=== PATIENT | female | born 1990 ===

== ENCOUNTER → 2020-03-06 08:26 | Outpatient (BNVA) | payer OTHER, SELFPAY | PROVIDERS: PCP Internal Medicine; Referring Provider Internal Medicine; Visit Provider Dietitian, Registered | DX: Z76.89 Persons encountering health services in other specified circumstances (principal) ==

== ENCOUNTER → 2020-03-12 08:13 | Outpatient (BNVA) | payer OTHER, SELFPAY | PROVIDERS: Visit Provider Surgery | DX: Z76.89 Persons encountering health services in other specified circumstances (principal) ==

== ENCOUNTER → 2020-03-27 15:44 | Outpatient (BNVA) | payer OTHER, SELFPAY | PROVIDERS: PCP Internal Medicine; Visit Provider Dietitian, Registered | DX: Z76.89 Persons encountering health services in other specified circumstances (principal) ==

== ENCOUNTER → 2020-04-09 10:34 | Outpatient (BNVA) | payer OTHER, SELFPAY | PROVIDERS: PCP Internal Medicine; Referring Provider Internal Medicine; Visit Provider Surgery | DX: Z76.89 Persons encountering health services in other specified circumstances (principal) ==

== ENCOUNTER → 2020-04-16 12:02 | Outpatient (BNVA) | payer OTHER, SELFPAY | PROVIDERS: Visit Provider Dietitian, Registered | DX: Z76.89 Persons encountering health services in other specified circumstances (principal) ==

== ENCOUNTER 2020-04-24 09:54 | Outpatient (REF) | payer OTHER, SELFPAY ==
--- NOTE | 2020-04-24 09:59 | US_ITS ---
EXAMINATION: US COMPLETE ABDOMEN WITH LIVER ELASTOGRAPHY CLINICAL INFORMATION: Morbid obesity due to excess calories COMPARISON: None. TECHNIQUE: Real-time imaging of the abdominal viscera. Noninvasive ultrasound liver fibrosis assessment is performed using Jordan ElastPQ point quantification shear wave elastography (pSWE) with a 5 MHz transducer. Multiple elastography samples are obtained. FINDINGS: PANCREAS: Normal. The visualized pancreatic head and body are normal in appearance. The remainder of the pancreas is obscured from visualization by the overlying bowel gas. ABDOMINAL AORTA: The proximal and middle aortic segments are normal in caliber. The distal aorta is obscured by gas. INFERIOR VENA CAVA: Visualized portions are normal. LIVER: The liver demonstrates normal contour with increased echogenicity. The liver is enlarged. No focal lesion or intrahepatic biliary duct dilatation. The right lobe measures 21.1 cm in length. The left lobe measures 14.1 cm in length. Hepatopedal flow of the main portal vein. Shear wave elastography provides a median stiffness of 1.73 m/s (reference: normal median stiffness is 0.81 - 1.22 m/s). The IQR/median stiffness to assess sampling precision is 0.24 (reference: optimal IQR/median stiffness is under 0.3). GALLBLADDER: Limited evaluation of the gallbladder. The patient is not NPO. No gallbladder wall thickening. The gallbladder may be stone filled COMMON BILE DUCT: Not visualized. RIGHT KIDNEY: Normal. No hydronephrosis. No renal calculi or focal parenchymal lesions. The kidney measures 13.8 cm in maximum dimension. LEFT KIDNEY: Normal. No hydronephrosis. No renal calculi or focal parenchymal lesions. The kidney measures 11.6 cm in maximum dimension. SPLEEN: Normal. The spleen measures 10.7 cm in maximum dimension. FREE FLUID: None. US/US abdomen comp w elastography IMPRESSION: 1. Hepatomegaly with hepatic steatosis. Limited evaluation of the gallbladder. Possible stone filled gallbladder. 2. Elastography: Liver elastography measurements are consistent with a moderate risk for clinically significant liver fibrosis (METAVIR Stage F2-F3).
--- NOTE | 2020-04-24 10:10 | FL_ITS ---
EXAMINATION: XR GI SERIES CLINICAL INFORMATION: Morbid obesity due to excess calories COMPARISON: None TECHNIQUE: Fluoroscopic assessment of the upper GI tract was performed in various upright and supine/prone obliquities utilizing thin and thick high density barium contrast material and effervescent granules. FINDINGS: The esophagus was normal in course, caliber, and contour. There was normal distensibility with no fixed segment of narrowing. No focal mucosal abnormality was identified. No significant esophageal dysmotility was observed. Contrast passed freely across the gastroesophageal junction into the stomach. No significant hiatal hernia. There was normal distensibility of the stomach with no focal abnormality identified. There was prompt gastric emptying into the duodenum which demonstrated a normal appearance. Mild gastroesophageal reflux was observed. FLUOROSCOPY TIME: 1.5 minutes DOSE AREA PRODUCT: 37.025 Gy-cm2 (aparicio-centimeter squared) FL/FL upper GI series IMPRESSION: Mild gastroesophageal reflux noted. Otherwise unremarkable upper GI examination.
[2020-04-25 14:17] LABS: H Pylori Breath Test NOT DETECTED (NOT DETECTED)
== END 2020-04-24 09:55 | disposition home or self-care (01) ==
LOC: HO.US 09:54
PROVIDERS: Visit Provider Surgery
DX: Z01.818 Encounter for other preprocedural examination (principal); E66.01 Morbid (severe) obesity due to excess calories; I10 Essential (primary) hypertension; K21.9 Gastro-esophageal reflux disease without esophagitis
CPT/HCPCS: 74240; 76705; 76981; 83013

== ENCOUNTER → 2020-04-30 08:01 | Outpatient (BNVA) | payer OTHER, SELFPAY | PROVIDERS: PCP Internal Medicine; Visit Provider Surgery | DX: Z76.89 Persons encountering health services in other specified circumstances (principal) ==

== ENCOUNTER → 2020-05-06 09:00 | Outpatient (BNVA) | payer OTHER, SELFPAY | PROVIDERS: PCP Internal Medicine; Visit Provider Surgery | DX: Z76.89 Persons encountering health services in other specified circumstances (principal) ==

== ENCOUNTER → 2020-05-09 07:59 | Outpatient (BNVA) | payer OTHER, SELFPAY | PROVIDERS: PCP Internal Medicine; Referring Provider Internal Medicine; Visit Provider Surgery | DX: Z76.89 Persons encountering health services in other specified circumstances (principal) ==

== ENCOUNTER → 2020-05-19 07:36 | Outpatient (REF) | payer OTHER, SELFPAY ==
--- NOTE | 2020-05-19 07:40 | CA_ITS ---
Transthoracic Echocardiogram Patient (Last, First, Middle): Llao Wade, Gender: Female Date of : 1990 Age: 30 Procedure Date: 05/19/2020 Procedure Type: Transthoracic Echocardiogram Location: OP Height: 167.64 cm Weight: 132.45 kg BSA: 2.35 m2 Heart Rate: bpm BP: 128 / 80 mmHg Manager Wound Care: Referring MD: Chava Maciel MD Symptoms: I51.7 - Cardiomegaly Study Quality: Fair ECG Rhythm: Sinus Conclusions: - The left ventricular systolic function is normal. The visually estimated ejection fraction is between 55-60%. - No obvious valvular pathology seen on this study. Findings Procedure Information Contrast agent, definity, is being given per protocol without apparent complications. Left Ventricle Normal left ventricular cavity size. There is normal left ventricular wall thickness. The left ventricular systolic function is normal. The visually estimated ejection fraction is between 55-60%. There is no evidence of regional wall motion abnormalities. Diastolic function is normal for age. Right Ventricle Normal right ventricular cavity size and systolic function. Atria The left atrium is normal in size. The right atrium is normal in size. Aortic Valve There is a normal trileaflet aortic valve. There is no aortic valve stenosis. There is no aortic valve regurgitation. Mitral Valve The mitral valve appears normal. There is no mitral valve regurgitation. There is no mitral valve stenosis. Pulmonic Valve The pulmonic valve was not well visualized. Tricuspid Valve Normal tricuspid valve structure. There is trace tricuspid valve regurgitation. The pulmonary artery systolic pressure is normal. Great Vessels The aortic annulus, sinuses of valsalva, and asc aorta are normal in size. Venous The inferior vena cava is normal in size and collapses greater than 50% with inspiration. Pericardium/Pleural There is no evidence of pericardial effusion. Prior Study Comparison No prior study available for comparison. Recommendations, Care & Conclusions No obvious valvular pathology seen on this study. Measurements 2D Linear Measurements IVSd: 1.05 0.6-0.9/0.6-1.0 cm LVIDd: 5.17 3.9-5.3/4.2-5.9 cm LVIDd Index: 2.20 2.4-3.2/2.2-3.1 cm/m2 LVIDs: 3.19 2.0-3.6 cm LVPWd: 1.00 0.7-1.1 cm Ao Root: 3.00 2.1-3.5 cm LA Diam: 4.10 2.7-3.8/3.0-4.0 cm LAIDs Index: 1.74 1.5-2.3 cm/m2 LV Mass: 247.54 67-162/88-224 g LV Mass Index: 105.34 43-95/49-115 g/m2 LVOT Diam: 2.30 3.0+(-)1.3 cm 2D Systolic Function EF 4C: 54.00 >55% EF 2C: 51.10 >55% EF BiP: 54.90 >55% Mitral Valve MV Pk E: 1.02 MV PK A: 0.54 MV Decel Time: 269.00 E/A: 1.90 E'Lateral: 12.80 E'Medial: 7.83 E/E' Med: 13.00 E/E' Lat: 8.00 PHT: 79.00 MVA PHT: 2.78 Decel Carbon: 3.78 Aortic Valve AoV Pk Abhinav: 1.46 AoV Mn Abhinav: 1.05 AoV VTI: 0.35 AoV Pk Grad: 9.00 Aov Mn Grad: 5.00 ALICIA Cont.VTI: 3.47 LVOT LVOT Pk Abhinav: 1.30 LVOT Mn Abhinav: 0.83 LVOT VTI: 0.29 LVOT Pk Grad: 7.00 LVOT Mn Grad: 3.00 LVOT Diam: 2.30 LVOT Area: 4.15 Diastolic Function MV Pk E: 1.02 MV Pk A: 0.54 E/A: 1.90 E'Medial: 7.83 E/E' Med: 13.00 E' Laterial: 12.80 E/E' Lat: 8.00 Tricuspid Valve TR Pk Abhinav: 2.09 TR Pk Grad: 17.00 RA Press: 3.00 RVSP: 20.00 Great Vessels Aorta Ao Root-2D: 3.00 2.0-3.7 cm Ao Asc: 2.90 2.1-3.4 cm Pulmonary Valve PV Pk Abhinav: 0.95 Peak PV Grad: 4.00 Updated in Other Vendor System with Status of Final Michael Wing MD electronically signed on 05/19/2020 1:36:51 PM with status of Final
== END ==
LOC: HO.CARD 07:36
PROVIDERS: Visit Provider Surgery
DX: Z01.818 Encounter for other preprocedural examination (principal); I10 Essential (primary) hypertension; I51.7 Cardiomegaly
CPT/HCPCS: 93306; Q9957

== ENCOUNTER → 2020-06-02 08:12 | Outpatient (BNVA) | payer OTHER, SELFPAY | PROVIDERS: PCP Internal Medicine; Visit Provider Surgery | DX: Z76.89 Persons encountering health services in other specified circumstances (principal) ==

== ENCOUNTER → 2020-06-20 08:10 | Outpatient (BNVA) | payer OTHER, SELFPAY | PROVIDERS: PCP Internal Medicine; Visit Provider Surgery | DX: Z76.89 Persons encountering health services in other specified circumstances (principal) ==

== ENCOUNTER → 2020-07-14 09:05 | Outpatient (BNVA) | payer OTHER, SELFPAY | PROVIDERS: PCP Internal Medicine; Visit Provider Physician Assistant ==

== ENCOUNTER → 2020-07-16 08:25 | Outpatient (BNVA) | payer OTHER, SELFPAY | PROVIDERS: PCP Internal Medicine; Visit Provider Surgery ==

== ENCOUNTER → 2020-07-17 08:09 | Outpatient (BNVA) | payer OTHER, SELFPAY | PROVIDERS: PCP Internal Medicine; Visit Provider Dietitian, Registered ==

== ENCOUNTER → 2020-07-25 08:24 | Outpatient (BNVA) | payer OTHER, SELFPAY | PROVIDERS: PCP Internal Medicine; Visit Provider Surgery ==

== ENCOUNTER → 2020-07-28 08:40 | Outpatient (BNVA) | payer OTHER, SELFPAY | PROVIDERS: PCP Internal Medicine; Visit Provider Physician Assistant ==

== ENCOUNTER → 2020-07-31 14:32 | Outpatient (BNVA) | payer OTHER, SELFPAY | PROVIDERS: Visit Provider Physician Assistant ==

== ENCOUNTER → 2020-08-01 14:16 | Outpatient (BNVA) | payer OTHER, SELFPAY | PROVIDERS: Visit Provider Physician Assistant ==

== ENCOUNTER 2020-08-05 05:58 | Inpatient (IN) | payer OTHER, SELFPAY ==
[2020-07-31 09:59] VITALS: BMI 43.4
[2020-07-31 14:52] LABS: MANUAL DIFF FLAG NO
[2020-07-31 14:54] LABS: Basophils Percent Auto 0.2 % (0-2); Eosinophils Absolute Auto 0.1 X10*3/uL (0.0-0.4); Eosinophils Percent Auto 1.3 % (0-4); Hematocrit 35.1 % (37-47); Hemoglobin 11.3 g/dl (12.0-16.0); Imm Gran Abs Auto 0.01 X10*3/uL (0.00-0.03); Imm Gran Pct Auto 0.2 % (0.0-0.4); Lymphocytes Absolute Auto 1.5 X10*3/uL (1.2-4.9); Lymphocytes Percent Auto 33.2 % (20-40); Mean Corpuscular HGB Conc 32.2 g/dl (31.0-35.0); Mean Corpuscular Hemoglobin 26.1 pg (27.0-33.0); Mean Corpuscular Volume 81.1 fL (80-98); Mean Platelet Volume 9.7 fL (9.4-12.3); Monocytes Absolute Auto 0.4 X10*3/uL (0.1-1.2); Monocytes Percent Auto 8.4 % (2-11); Neutrophils Absolute Auto 2.6 X10*3/uL (2.0-8.3); Neutrophils Percent Auto 56.7 % (45-73); Platelet Count 405 X10*3/uL (160-400); Red Blood Count 4.33 X10*6/uL (4.20-5.50); Red Cell Distribution Width 14.3 % (11.0-16.0); White Blood Count 4.6 X10*3/uL (4.8-10.8)
[2020-07-31 15:06] LABS: INTERNATIONAL NORM RATIO 1.2 (0.9-1.1); Prothrombin Time 14.4 SEC (10.8-13.0)
[2020-07-31 15:09] LABS: Partial Thromboplastin Time 42.6 SEC (24.1-38.0)
[2020-07-31 15:14] LABS: Estimated Average Glucose 103 mg/dL; Hemoglobin A1c % 5.2 %
[2020-07-31 15:25] LABS: Alanine Aminotransferase 31 U/L (0-31); Albumin Level 4.5 g/dL (3.5-5.0); Alkaline Phosphatase 87 U/L (39-117); Anion Gap 15 (12-20); Aspartate Amino Transferase 20 U/L (5-31); Bilirubin Total 0.6 mg/dL (0.0-1.0); Blood Urea Nitrogen 15 mg/dL (9-16); C Reactive Protein 3.69 mg/dL (< or = 0.50); Calcium 9.7 mg/dL (8.4-10.2); Carbon Dioxide 26 mmol/L (22-29); Chloride 106 mmol/L (96-108); Cholesterol 148 mg/dL; Creatinine Clr Calc Pharmacy 161.7; Estimated Glomerular Filt Rate > 60; Glucose Random 83 mg/dL (60-115); HDL Cholesterol 31 mg/dL; LDL Cholesterol Calculated 100 mg/dl; Sodium 143 mmol/L (135-145); Total Protein 8.2 g/dL (6.5-8.0); Triglycerides 85 mg/dL
[2020-07-31 15:45] LABS: TSH reflex Free T4 0.87 uIU/mL (0.32-4.0)
[2020-08-01 11:16] LABS: Insulin Level Total 17.1 uIU/mL
--- NOTE | 2020-08-04 10:35 | P.CONAN_ITS ---
Documented by User: Sammie Godwin 08/04/20 10:36 HPI - Anesthesia Eval Consult details Narrative: 30yo F for Gastrectomy Sleeve PMFSH Active Problems Active Problems: All Active Problems (Updated 07/31/20 @ 10:04 by Silvia Jimenez) Obesity (Acute) BMI 37.0-37.9, adult (Acute) Morbid obesity (Acute) Left ventricular hypertrophy (Acute) Past Medical History Medical History Anemia GERD (gastroesophageal reflux disease) Lab test negative for COVID-19 virus Left ventricular hypertrophy Morbid obesity Family History Family History Father No problems noted. Mother Hypertension Brain tumor Stroke Diabetes Brother No problems noted. Sister No problems noted. Surgical History Surgical History Hx of foot surgery Hx of tonsillectomy Social History Social History Are you a primary adult daycare coordinator to a significant other at home: No Do you presently have visiting nurse or other home services: No Smoking Status: Never smoker Use of substances other than those prescribed or required for medical reasons: Yes Substance Use Type: Marijuana Substance Use Type Other:: has not used in 2 months Substance Use Frequency: Occasionally Have you been hit, kicked, punched, or otherwise hurt by someone within the past year? If so, by whom?: No Advance Directives Information Provided: No Recently lost weight without trying: No Meds Allergies Allergy/AdvReac Type Severity Reaction Status Date / Time No Known Allergies Allergy Verified 07/31/20 10:08 Home Medications Medication Instructions Recorded Confirmed Last Taken Type pantoprazole 40 mg PO DAILY@0630 08/05/20 08/05/20 Unknown History Exam Exam Date and Time: August 04, 2020 1035 Height,Weight and Vital Signs: Height 5 ft 6 in Weight 122.016 kg Pertinent Lab Results Pertinent Lab Results: Laboratory Tests 07/31/20 07/31/20 07/31/20 14:15 14:15 14:15 WBC 4.6 L RBC 4.33 Hgb 11.3 L Hct 35.1 L MCV 81.1 MCH 26.1 L MCHC 32.2 RDW 14.3 Plt Count 405 H MPV 9.7 Immature Gran % (Auto) 0.2 Neut % (Auto) 56.7 Lymph % (Auto) 33.2 Wilkin % (Auto) 8.4 Eos % (Auto) 1.3 Baso % (Auto) 0.2 Lymph # (Auto) 1.5 Wilkin # (Auto) 0.4 Eos # (Auto) 0.1 Baso # (Auto) 0.0 Abs Immat Gran (auto) 0.01 Absolute Neuts (auto) 2.6 Absolute Nucleated RBC 0.000 Nucleated RBC % (auto) 0.0 PT 14.4 H INR 1.2 H APTT 42.6 H Sodium 143 Potassium 4.0 Chloride 106 Carbon Dioxide 26 Anion Gap 15 BUN 15 Creatinine 0.69 Estim Creat Clear Calc 161.7 Estimated GFR > 60 Random Glucose 83 Estimat Average Glucose Hemoglobin A1c % Total Insulin Calcium 9.7 Total Bilirubin 0.6 AST 20 ALT 31 Alkaline Phosphatase 87 C-Reactive Protein 3.69 H Total Protein 8.2 H Albumin 4.5 Triglycerides 85 Cholesterol 148 LDL Cholesterol, Calc 100 HDL Cholesterol 31 TSH 0.87 Blood Type Antibody Screen 07/31/20 07/31/20 07/31/20 14:15 14:15 14:15 WBC RBC Hgb Hct MCV MCH MCHC RDW Plt Count MPV Immature Gran % (Auto) Neut % (Auto) Lymph % (Auto) Wilkin % (Auto) Eos % (Auto) Baso % (Auto) Lymph # (Auto) Wilkin # (Auto) Eos # (Auto) Baso # (Auto) Abs Immat Gran (auto) Absolute Neuts (auto) Absolute Nucleated RBC Nucleated RBC % (auto) PT INR APTT Sodium Potassium Chloride Carbon Dioxide Anion Gap BUN Creatinine Estim Creat Clear Calc Estimated GFR Random Glucose Estimat Average Glucose 103 Hemoglobin A1c % 5.2 Total Insulin 17.1 Calcium Total Bilirubin AST ALT Alkaline Phosphatase C-Reactive Protein Total Protein Albumin Triglycerides Cholesterol LDL Cholesterol, Calc HDL Cholesterol TSH Blood Type O Positive Antibody Screen NEGATIVE Narrative Narrative: EKG 01/2020 NSR @ 71 ?LVH ECHO 05/2020 Conclusions: - The left ventricular systolic function is normal. The visually estimated ejection fraction is between 55-60%. - No obvious valvular pathology seen on this study. Assessment and Plan Assessment Anesthesia Assessment: Chart Reviewed Documented by User: Elijah Moran 08/05/20 07:42 [facility] Past Medical History Medical History Anemia GERD (gastroesophageal reflux disease) Lab test negative for COVID-19 virus Left ventricular hypertrophy Morbid obesity Family History Family History Father No problems noted. Mother Hypertension Brain tumor Stroke Diabetes Brother No problems noted. Sister No problems noted. Surgical History Surgical History Hx of foot surgery Hx of tonsillectomy Social History Social History Are you a primary adult daycare coordinator to a significant other at home: No Do you presently have visiting nurse or other home services: No Smoking Status: Never smoker Use of substances other than those prescribed or required for medical reasons: Yes Substance Use Type: Marijuana Substance Use Type Other:: has not used in 2 months Substance Use Frequency: Occasionally Have you been hit, kicked, punched, or otherwise hurt by someone within the past year? If so, by whom?: No Advance Directives Information Provided: No Recently lost weight without trying: No Meds Allergies Allergy/AdvReac Type Severity Reaction Status Date / Time No Known Allergies Allergy Verified 07/31/20 10:08 Home Medications Medication Instructions Recorded Confirmed Last Taken Type pantoprazole 40 mg PO DAILY@0630 08/05/20 08/05/20 Unknown History Exam Airway Mallampati Class: III TM Dist: >3cm Neck ROM: Full Loose/Missing/Broken Teeth: No Heart: rrr+[id number] Lungs: cta b/l Assessment and Plan Assessment Anesthesia Assessment: Anesthesia Plan Discussed, PAT Visit and Chart Reviewed Final Anesthetic Review NPO: Yes ASA Class: II Final Preanesthetic Review: No Changes in Pt Med Stat, Meds/Allgs Chart Reviewed, Consent Obtained/Reviewed and Anes Risks/Benef Reviewed Patient Risk: Low Procedure Risk: Low Assessment/Block/Sedation in SS: Assess/Block/Sedation-SS Anesthetic Plan Anesthetic Plan: GA and Agree w/ Assess. and Plan Disposition: Standard PACU
--- NOTE | 2020-08-04 19:20 | MHC.SHP ---
Pre-Procedural Eval Section A The patient is an INPATIENT: Yes The History & Physical has been completed within 30 days and I have reviewed it.: No Section B Chief Complaint: Morbid Severe Obesity Details of Present Illness: Morbid obesity Relevant Family History (Specify if Yes): No Relevant Social History: None Present Medications: see Short Stay Collaborative assessment Medical History: No relevant PMH History of Previous Operations: No relevant previous surgery Allergies: Allergies Allergy/AdvReac Type Severity Reaction Status Date / Time No Known Allergies Allergy Verified 07/31/20 10:08 Review of Systems Sugical H&P ROS: Negative: Constitution, Cardiovascular, Respiratory, Neurological, Psychiatric, Hem-Onc, Allergic/Immunologic, Gastrointestinal, Genitourinary, Musculoskeletal, Integumentary, Endocrine and Eyes/Ears/Nose/Throat Exam Surgical H&P Exam: Normal: HEENT, Normal: Heart, Normal: Lungs, Normal: Extremities, Normal: Abdomen, Normal: Skin and Normal: Neurological Plan Diagnosis/Plan: Unchanged I have reviewed the history and physical and performed a pertinent physical examination on my patient. No changes have occurred unless specified.
[2020-08-05] VITALS (11 sets, daily range): BP systolic 121–151; BP diastolic 63–92; PULSE 63–103; RESP 14–20; TEMP 36–36.7; O2SAT 94–100
[2020-08-05 06:30] LABS: UPreg QC Valid YES
[2020-08-05 06:31] LABS: Urine Pregnancy NEGATIVE (NEGATIVE)
[2020-08-05 06:59] LABS: COVID-19 Test Negative (Negative)
[2020-08-05] MEDS: Lactated Ringers 1,000 ML 999 ML IV (07:01)
[2020-08-05] MEDS: Lactated Ringers 1,000 ML 100 ML IVCONT (07:02)
--- NOTE | 2020-08-05 07:52 | HO.POSTANES ---
Post Anesthesia Evaluation Post Anesthesia Evaluation Vital Signs: Vital Signs Temp Pulse Resp BP Pulse Ox 08/05/20 06:32 97.2 F 103 H 18 133/77 99 Anesthesia: General Endotracheal-GETA Mental Status: Awake Pain Control: Satisfactory Nausea/Vomiting: None Hydration: Adequate Anesthesia-Related Issues: No Anes. Related Issues
--- NOTE | 2020-08-05 10:57 | P.BOP_ITS ---
Brief Operative Note Date of Service: 08/05/20 Pre-op diagnosis: Morbid obesity and comorbidities (see below) Post-op diagnosis: same Procedure: INITIAL PATIENT BMI ON PRESENTATION AT OUR OFFICE: 47.6 kg/m2 LAST BMI BEFORE SURGERY: 43.6 kg/m2 COMORBIDITIES: GERD, PCOS, depressionliver steatosis, liver fibrosis The patient participated in an intensive weekly lifestyle intervention and exercise program during which the patient has lost between the initial office visit and the last preoperative visit 26 lbs, or 8.78% of initial actual body weight. The patient met the BMI-criteria for bariatric surgery based on the BMI on initial presentation. The patient should not be penalized for achieving such weight loss because it is not sustainable long-term without surgical intervention and it was achieved in preparation for bariatric surgery under my direction and based on my published research ([email or web address] and [email or web address]) that a 10% preop erative weight loss improves long-term weight loss after surgery and reduces perioperative complications. Insurance carriers such as [facility] have endorsed my recommendations and have included in their policies criteria to include a 10% preoperative weight loss requirement. PROCEDURE: Esophago-gastroscopy, laparoscopic repair of incarcerated diaphragmatic hernia, laparoscopic lysis of adhesions, laparoscopic sleeve gastrectomy and laparoscopic gastropexy INDICATIONS: This is a 30 year-old female who was electively scheduled for laparoscopic, possibly open sleeve gastrectomy. The risks and complications of the procedure were discussed with the patient in advance, particularly the possibility of ; pulmonary embolism; staple line leak; bleeding; GERD; cardiac, pulmonary, or renal complications; as well as long-term problems such as insufficient weight loss, vitamin deficiency, strictures, or ulcers. The patient understood all the risks, and was in agreement to proceed with surgery. DESCRIPTION OF PROCEDURE: After informed consent was obtained from the patient, the patient was given preoperative antibiotics, and was transferred to the operating room. After successful induction of general anesthesia, pneumatic compressive devices were placed on both lower extremities. An upper endoscopy was performed next. The oropharynx and esophagus appeared to be within normal limits. There was a small diaphragmatic hernia present that was not reported at the preoperative upper GI. The stomach was entered. Then after all fluid and air were suctioned and the stomach was fully decompressed, the scope was withdrawn and secured in the mid esophagus. The patient was then prepped and draped in the usual sterile manner, and abdominal access was established at the right upper quadrant with the David technique. A 12 mm blunt port was inserted, and the abdomen was insufflated with CO2 to a pressure of 15 mmHg. Under direct visualization, additional ports were placed, specifically two 5 mm Versi-step ports to the left upper quadrant, and a 5 mm Versi-Step port to the right upper quadrant. 1% lidocaine plan was used to infiltrate all port sites as well as all fascia defects. Following that, the patient was placed in a steep reverse Trendelenburg position. An additional 5 mm port was placed to the right flank for the Mediflex retractor that was used to retract the left lobe of the liver. Due to the patient's large BMI and thick abdominal wall three 5 mm Versi-step ports had to be repositioned cephalad to be able to manipulate our instruments adequately and be able to perform the operation safely. Even with these additional ports, the operation was very difficult and took significantly longer to complete than the standard sleeve gastrectomy. The gastro-esophageal fat pad was opened with the ultrasonic device (Thunderbeat, Olympus) and the anterior esophagus and hiatus were exposed. The angle of His was opened with the ultrasonic device the fundus of the stomach from any diaphragmatic and splenic attachments. I then opened the gastrocolic ligament between the transverse colon and the greater curvature of the stomach with the ultrasonic device to enter the lesser sac and facilitate the ligation of the short gastric vessels. I started at a mid-point along the greater curvature and using the Thunderbeat, all short gastric vessels were divided all the way to the angle of His until the left darryn was completely dissected at its entirety. I then divided the gastro-colic ligament distally to a distance of about 3-4 cm proximal to the esophagus. There were some congenital adhesions between the pancreas and posterior gastric wall. Those were lysed completely with the ultrasonic device. Adhesiolysis took approximately 45 min to complete. The stomach was then divided transversely with one XAVIER-45 purple and four XAVIER-60 articulating orange loads. Every effort was made that the gastric sleeve had a tubular shape and an even caliber throughout. Once the sleeve resection was completed, the staple line of the gastric sleeve was reinforced with Hemoclips. The resected stomach was retrieved without difficulty from the David port. A gastropexy was then performed in order to prevent postoperative GERD and partial gastric volvulus. Several interrupted 2.0 Surgidac sutures were placed between the sleeve's staple line and the previously divided greater omentum and gastro-colic ligament using the Endo-Stitch device. An upper endoscopy was performed. There was no narrowing at the GE junction. The scope was easily advanced all the way to the pylorus which was clearly visualized. There was no narrowing anywhere and the sleeve's caliber was even throughout. The sleeve's staple line was inspected and there was no evidence of ischemia, bleeding or dehiscence. At that point the gastroscope was withdrawn from the patient?s mouth while we were decompressing the bowel and the stomach from any remaining air. I looked into the lesser sac to see how the sleeve was situating and it was situating well. There was no bleeding from the staple line, spleen, or short gastric vessels. The Mediflex retractor was removed, and the undersurface of the liver was inspected and there was no bleeding. The patient was placed in supine position. I closed the fascial defect of the 12 mm port site with a figure of eight #1 Polysorb suture. Then 100 cc 0.25 % Marcaine plain with 10 mg of Dexamethasone were used to infiltrate the fascial closure as well as all skin incisions. At this point, the abdomen was deflated, all ports were removed under direct visi on, and no bleeding was noted from any of the port sites. The skin incisions were irrigated with saline and were closed with 4-0 absorbable monofilament sutures. Steri-Strips and OpSites were used to cover all incisions. The patient was extubated and was transferred in stable condition to the recovery room for further care. I was present and performed all deluna parts of the procedure. Ms. Michele was the multimedia assistant. There were no residents to assist with this case. Very difficult surgery due to the patient's body habitus and thick abdominal wall requiring 3 ports to be repositioned and prolonging the operation for an additional one hour. Jose Maciel MD, PhD, FACS Surgeon: Chava Maciel MD Anesthesia: GETA, local and other (TAP block) [employer] Servicer: Ashtyn Michele Estimated blood loss (mL): 10 IV fluids (mL): 3,000 Urine output (mL): 0 (No Lane to record) Pathology: other (Stomach) Condition: stable Disposition: PACU
--- NOTE | 2020-08-05 10:57 | PM.DS ---
DS: Providers Provider Date of Service: 08/06/20 Date of admission: 08/05/20 05:58 Primary care physician: Unknown Physician DS: Medications Discharge Medications Home Medications: Home Medications Medication Instructions Recorded Confirmed pantoprazole 40 mg PO DAILY@0630 08/05/20 08/05/20 Previous Rx's Medication Instructions Recorded ondansetron HCl 4 mg tablet 4 mg PO DAILY PRN #14 tab 07/25/20 sucralfate 100 mg/mL oral 10 ml PO BID #420 ml 07/25/20 suspension DS: Summary Time Spent with Patient Time attestation: ADMITTING DIAGNOSIS: morbid obesity, left ventricular hypertrophy DISCHARGE DIAGNOSIS: same, s/p laparoscopic sleeve gastrectomy PAST SURGICAL HISTORY: tonsilectomy PROCEDURE: upper endoscopy, laparoscopic sleeve gastrectomy DISCHARGE SUMMARY: History of Present Illness: The patient is a 30 year-old woman with a BMI of 47.45 kg/m2 and associated co-morbidities as described above. The patient had extensive work-up,lost 24.4 lbs preoperatively and was electively scheduled for laparoscopic, possible open sleeve gastrectomy and gastropexy. Risks and complications of the surgery were discussed with the patient in advance, particularly the possibility of , pulmonary embolism, anastomotic leak, bleeding, bowel injury, GERD, cardiac, renal or pulmonary complications. The patient understood all the risks and was in agreement with the surgical plan. Hospital Course: The patient underwent an uneventful laparoscopic sleeve gastrectomy with gastropexy the day of admission. Postoperatively, the patient was transferred to the surgical floor. The patient was on IV Acetaminophen and IV dilaudid for pain control. Patient was started on bariatric phase 1 diet POD #0. On postoperative day one, the patient was feeling well without nausea, vomiting, fevers, or tachycardia. The patient had some mild incisional pain. The abdomen was soft. On the morning of postoperative day one, the patient was continued on 1 ounce of water or ice every half hour. During the first day, the patient did fairly well, having some incisional pain, but able to ambulate adequately and to tolerate liquids well. Since the patient is doing well, we decided that the patient was ready to be discharged. The patient was given instructions to follow-up with me next week and to call my office for any fever over 101, persistent abdominal pain, nausea, vomiting, GERD, symptoms of DVT such as calf tenderness, or leg swelling, or pulmonary embolism such as chest pain or shortness of breath. The patient was also instructed to drink 40-60 ounces of liquids per day using the 1-ounce cups. The patient was given prescription for Tylenol for pain, Zofran prn for nausea, and pantoprazole and carafate. The patient was encouraged to ambulate and use the incentive spirometer. The patient was allowed to shower, but no baths, and encouraged to stay active at home. All of these instructions were given to the patient personally. All questions were answered and the patient understood all instructions, the instructions were also given to the patient in print. Total time spent providing and/or coordinating discharge services: Discharge coordination time: Less than 30 minutes Physical Exam Vital Signs: Vital Signs: Last Vital Signs Temp 97.2 F 08/05/20 06:32 Pulse 103 H 08/05/20 06:32 Resp 18 08/05/20 06:32 BP 133/77 08/05/20 06:32 Pulse Ox 99 08/05/20 06:32 Body Mass Index 43.4 DS: Data Data Completed and Pending Pending studies at discharge: Pending at discharge 08/05/20 08:27 Surgical [PTH] Routine Labs on day of discharge: Laboratory Results - last 24 hr 08/05/20 08/05/20 06:22 06:22 Urine Test NEGATIVE COVID-19 (BETTE) Negative COVID-19 Clin Com See Note Discharge Plan Discharge Anticipated Discharge Date/Time: 08/06/20 11:56 Patient Disposition: Home, Self-Care Referrals: Physician,Unknown [Primary Care Provider] - Discharge Medications: Continued pantoprazole 40 mg tablet,delayed release (DR/EC) 40 mg PO DAILY@0630 RF: 0 sucralfate 100 mg/mL suspension 10 ml PO BID Qty: 420 RF: 2 ondansetron HCl [Zofran] 4 mg tablet 4 mg PO DAILY PRN (Reason: nausea and vomiting) Qty: 14 RF: 0 Discharge Orders: Discharge Order (Routine); Ordered 08/06/20 Ordered By: Chava Maciel Diet: other Activity on Discharge: No heavy lifting Stand Alone Forms: Patient Portal Discharge page Activity Restrictions/Additional Instructions: No tub baths, sex or returning to work until discussed at first post op appointment. No exercise, alcohol, tobacco or illegal drug use. Continue to use incentive spirometer hourly while awake. Walk in home for 5- 10 minutes every 2 hours during the first week. Continue phase 1 diet today and start phase 2 diet tomorrow morning. Follow all instructions in the bariatric handbook and call with any questions. Care Plan Goals: weight loss Health Concerns: morbid obesity Plan of Treatment: see discharge instructions Discharge Date/Time: 08/06/20 09:21
--- NOTE | 2020-08-05 11:04 | P.PNGS_ITS ---
Subjective Subjective Date of Service: 08/06/20 Interval history: Patient had mild incisional pain but was able to ambulate and use the incentive spirometer. Physical Exam Vital Signs: Vital Signs: Last Vital Signs Temp 97.4 F 08/05/20 10:52 Pulse 96 08/05/20 10:57 Resp 20 08/05/20 10:57 BP 123/69 08/05/20 10:57 Pulse Ox 100 08/05/20 10:57 Body Mass Index 43.4 GI: Inspection: Yes normal to inspection, Yes incision (dry, clean and intact) and Yes obesity Extrem: Right lower extremity: normal to inspection (no calf tenderness) Left lower extremity: normal to inspection (no calf tenderness) Progress Note: A&P Assessment and plan (1) Morbid obesity: Status: Acute (2) Left ventricular hypertrophy: Problem details: had echo 05/19/20 and normal Status: Acute (3) GERD (gastroesophageal reflux disease): Problem details: mild per patient-no Rx Status: Acute (4) Steatosis, liver: Status: Acute (5) Liver fibrosis: Status: Acute (6) PCOS (polycystic ovarian syndrome): Status: Acute (7) Diaphragmatic hernia: Status: Acute (8) S/P laparoscopic sleeve gastrectomy: Status: Acute Assessment and Plan: 30 year old female was admitted 08/05/2020 with morbid obesity and comorbidities. Problem 1: s/p laparoscopic sleeve gastrectomy, gastropexy and lysis of adhes ions Status: Doing well Plan: Check am labs, If OK, will begin phase 1 bariatric diet. (9) Depression: Status: Acute Fall Risk Details Current Medications: Current Medications Generic Name Dose Route Start Last Admin Trade Name Freq PRN Reason Stop Dose Admin Fentanyl 50 mcg 08/05/20 07:52 Fentanyl Citrate/Pf 100 Mcg/2 Ml Vial IVPUSH Q5M PRN Pain, Moderate (Pain Scale 4-6 Hydromorphone HCl 0.5 mg 08/05/20 07:52 Hydromorphone Hcl 0.5 Mg/0.5 Ml Syringe IVPUSH Q5M PRN Pain, Severe (Pain Scale 7-10) Lactated Ringer's 1,000 mls @ 100 mls/hr 08/05/20 06:15 08/05/20 07:02 Lr IVCONT 100 mls/hr .Q10H ANDER Administration Promethazine HCl 12.5 mg/ 50.5 mls @ 202 mls/hr 08/05/20 07:52 Sodium Chloride IV ONCE PRN Nausea and Vomiting Ondansetron HCl 4 mg 08/05/20 07:52 Ondansetron Hcl 4 Mg/2 Ml Vial IVPUSH ONCE PRN Nausea and Vomiting Oxycodone HCl 10 mg 08/05/20 07:52 Oxycodone Hcl Immed Release 5 Mg Tablet PO ONCE PRN Pain, Mild (Pain Scale 1-3) Time Spent With Patient Time: Total time spent is greater than 50% in coordination of care (as documented) at patient's floor/unit and/or counseling patient: Time with patient: less than 15 minutes Procedures Date of Service Date of Service: 08/06/20
[2020-08-05 11:21] LABS: Hematocrit 33.5 % (37-47); Hemoglobin 10.9 g/dl (12.0-16.0)
[2020-08-05 11:49] LABS: Anion Gap 15 (12-20); Blood Urea Nitrogen 7 mg/dL (9-16); Carbon Dioxide 23 mmol/L (22-29); Chloride 103 mmol/L (96-108); Creatinine Clr Calc Pharmacy 157.1; Estimated Glomerular Filt Rate > 60; Glucose Random 120 mg/dL (60-115); Potassium 3.5 mmol/L (3.3-5.1); Sodium 137 mmol/L (135-145)
[2020-08-05 11:55] LABS: Calcium 8.7 mg/dL (8.4-10.2)
[2020-08-05] MEDS: Famotidine/PF 20 MG/2 ML VIAL IVPUSH ×2 (12:35→21:46)
[2020-08-05] MEDS: Lactated Ringers 1,000 ML 125 ML IVCONT ×2 (12:39→20:18)
[2020-08-05] MEDS: ondansetron HCL 4 MG/2 ML VIAL IVPUSH ×2 (13:46→21:46)
[2020-08-05] MEDS: ceFAZolin Sodium/Dextrose,Iso 2 GM/50 ML PIGGYBACK IV (13:47)
[2020-08-05] MEDS: Metoclopramide HCl 10 MG/2 ML VIAL IVPUSH (14:30)
[2020-08-05] MEDS: 0.9 % Sodium Chloride Flush 3 ML SYRINGE IVFLUSH (23:30)
[2020-08-06 03:54] VITALS: BP 131/68; PULSE 61; RESP 14; TEMP 36.9; O2SAT 95
[2020-08-06] MEDS: Lactated Ringers 1,000 ML 125 ML IVCONT (04:08)
[2020-08-06 04:58] LABS: MANUAL DIFF FLAG NO
[2020-08-06 05:04] LABS: Basophils Percent Auto 0.1 % (0-2); Hematocrit 30.6 % (37-47); Hemoglobin 9.9 g/dl (12.0-16.0); Imm Gran Abs Auto 0.04 X10*3/uL (0.00-0.03); Imm Gran Pct Auto 0.4 % (0.0-0.4); Lymphocytes Absolute Auto 0.9 X10*3/uL (1.2-4.9); Lymphocytes Percent Auto 8.7 % (20-40); Mean Corpuscular HGB Conc 32.4 g/dl (31.0-35.0); Mean Corpuscular Hemoglobin 25.7 pg (27.0-33.0); Mean Corpuscular Volume 79.5 fL (80-98); Mean Platelet Volume 10.1 fL (9.4-12.3); Monocytes Absolute Auto 0.5 X10*3/uL (0.1-1.2); Monocytes Percent Auto 4.7 % (2-11); Neutrophils Absolute Auto 9.1 X10*3/uL (2.0-8.3); Neutrophils Percent Auto 86.1 % (45-73); Platelet Count 369 X10*3/uL (160-400); Red Blood Count 3.85 X10*6/uL (4.20-5.50); Red Cell Distribution Width 14.1 % (11.0-16.0); White Blood Count 10.6 X10*3/uL (4.8-10.8)
[2020-08-06 05:32] LABS: Anion Gap 14 (12-20); Blood Urea Nitrogen 5 mg/dL (9-16); Calcium 8.9 mg/dL (8.4-10.2); Carbon Dioxide 22 mmol/L (22-29); Chloride 106 mmol/L (96-108); Creatinine Clr Calc Pharmacy 179.9; Estimated Glomerular Filt Rate > 60; Glucose Random 98 mg/dL (60-115); Sodium 138 mmol/L (135-145)
[2020-08-06] MEDS: ondansetron HCL 4 MG/2 ML VIAL IVPUSH (05:52)
[2020-08-06 07:30] VITALS: BP 126/67; PULSE 58; RESP 17; TEMP 36.2; O2SAT 96
[2020-08-06] MEDS: Famotidine/PF 20 MG/2 ML VIAL IVPUSH (07:59)
--- NOTE | 2020-08-06 08:56 | MHC.CM.PN ---
pt lives c her parent in their home . she reports that she is independent and cares for herself, she works a job. pt's parent can help her if she has any needs. this will include a ride home at dc. pt denies the need for vna at dc. dc plan is home no svcs. cm to cont. to follow.
== END 2020-08-06 09:21 | disposition home or self-care (01) | DRG 620 ==
LOC: HO.SSSA 10:57 → HO.S3 11:11
PROVIDERS: Nurse Practitioner; Physician Assistant; Admitting Provider Surgery; Visit Provider Surgery
PROC: 0DB64Z3 Excision of Stomach, Percutaneous Endoscopic Approach, Vertical (ICD-10-PCS; CPT 43845; principal; 2020-08-05 07:30)
DX: E66.01 Morbid (severe) obesity due to excess calories (principal); K46.0 Unspecified abdominal hernia with obstruction, without gangrene; K74.00 Hepatic fibrosis, unspecified; Z68.42 Body mass index [BMI] 45.0-49.9, adult; K66.0 Peritoneal adhesions (postprocedural) (postinfection); K76.0 Fatty (change of) liver, not elsewhere classified; E28.2 Polycystic ovarian syndrome; Z20.822 Contact with and (suspected) exposure to COVID-19; Z79.899 Other long term (current) drug therapy
CPT/HCPCS: 36415; 80048; 80053; 80061; 81025; 83036; 83525; 84443; 85014; 85018; 85025; 85610; 85730; 86140; 86850; 86900; 86901; 87635; 88307; 88342; 99024; A4649; J0131; J0690; J1100; J1170; J2250; J2370; J2405; J2765; J3010

== ENCOUNTER → 2020-08-13 08:37 | Outpatient (BNVA) | payer OTHER, SELFPAY | PROVIDERS: PCP Internal Medicine; Visit Provider Surgery ==

== ENCOUNTER → 2020-09-10 08:05 | Outpatient (BNVA) | payer OTHER, SELFPAY | PROVIDERS: PCP Internal Medicine; Visit Provider Surgery ==

== ENCOUNTER → 2020-10-08 08:09 | Outpatient (BNVA) | payer OTHER, SELFPAY | PROVIDERS: PCP Internal Medicine; Visit Provider Surgery ==

== ENCOUNTER 2021-01-09 08:13 | Outpatient (REF) | payer OTHER, SELFPAY ==
[2021-01-09 11:06] LABS: MANUAL DIFF FLAG NO
[2021-01-09 11:11] LABS: Basophils Percent Auto 0.4 % (0-2); Eosinophils Absolute Auto 0.1 X10*3/uL (0.0-0.4); Eosinophils Percent Auto 2.1 % (0-4); Hematocrit 34.5 % (37-47); Imm Gran Abs Auto 0.01 X10*3/uL (0.00-0.03); Imm Gran Pct Auto 0.2 % (0.0-0.4); Lymphocytes Absolute Auto 2.3 X10*3/uL (1.2-4.9); Lymphocytes Percent Auto 50.2 % (20-40); Mean Corpuscular HGB Conc 31.9 g/dl (31.0-35.0); Mean Corpuscular Hemoglobin 26.1 pg (27.0-33.0); Mean Corpuscular Volume 81.9 fL (80-98); Mean Platelet Volume 10.1 fL (9.4-12.3); Monocytes Absolute Auto 0.4 X10*3/uL (0.1-1.2); Monocytes Percent Auto 8.2 % (2-11); Neutrophils Absolute Auto 1.8 X10*3/uL (2.0-8.3); Neutrophils Percent Auto 38.9 % (45-73); Platelet Count 363 X10*3/uL (160-400); Red Blood Count 4.21 X10*6/uL (4.20-5.50); Red Cell Distribution Width 13.8 % (11.0-16.0); White Blood Count 4.7 X10*3/uL (4.8-10.8)
[2021-01-09 11:36] LABS: Alanine Aminotransferase 19 U/L (0-31); Albumin Level 4.1 g/dL (3.5-5.0); Alkaline Phosphatase 92 U/L (39-117); Anion Gap 14 (12-20); Aspartate Amino Transferase 15 U/L (5-31); Bilirubin Total 0.3 mg/dL (0.0-1.0); Blood Urea Nitrogen 11 mg/dL (9-16); Calcium 9.4 mg/dL (8.4-10.2); Carbon Dioxide 26 mmol/L (22-29); Chloride 105 mmol/L (96-108); Estimated Glomerular Filt Rate > 60; Glucose Random 95 mg/dL (60-115); Potassium 4.2 mmol/L (3.3-5.1); Sodium 141 mmol/L (135-145); Total Protein 7.4 g/dL (6.5-8.0)
[2021-01-09 11:58] LABS: TSH reflex Free T4 2.11 uIU/mL (0.32-4.0)
[2021-01-09 12:10] LABS: Folate 15.4 ng/mL (> or = 4.0); Vitamin B12 482 pg/mL (200-900)
[2021-01-17 14:46] LABS: Vitamin D 25-OH, D2 <4 ng/mL; Vitamin D 25-OH, D3 25 ng/mL; Vitamin D 25-OH, Total 25 ng/mL (30-100)
== END 2021-01-09 08:14 | disposition home or self-care (01) ==
LOC: HO.HMGCLDS 08:13
PROVIDERS: PCP Internal Medicine; Visit Provider Internal Medicine
DX: L65.9 Nonscarring hair loss, unspecified (principal)
CPT/HCPCS: 36415; 80053; 82306; 82607; 82746; 84443; 85025

== ENCOUNTER 2021-03-06 10:53 | Outpatient (REF) | payer OTHER, SELFPAY ==
[2021-03-08 05:01] LABS: Rubeola IgG (Measles) >300.00 AU/mL
[2021-03-09 04:22] LABS: HBS Num1 0.34 mIU/mL (0-7.99); ~HepC Num1 0.22 S/CO (0.00-0.79); ~Hepatitis B Surface Antibody NONREACTIVE (Nonreactive); ~Hepatitis C Antibody Nonreactive (Nonreactive)
[2021-03-09 11:46] LABS: TS Negative Control Passed; TS Panel A 1; TS Panel B 0; TS Positive Control Passed; TSpotTB Negative (SeeBelow)
[2021-03-11 15:01] LABS: Tetanus Antitoxiod Antibody 4.14 IU/mL
== END 2021-03-06 10:54 | disposition home or self-care (01) ==
LOC: HO.HMGCLDS 10:53
PROVIDERS: PCP Internal Medicine; Visit Provider Internal Medicine
DX: Z11.1 Encounter for screening for respiratory tuberculosis (principal); Z28.3 Underimmunization status
CPT/HCPCS: 36415; 86481; 86706; 86735; 86762; 86765; 86774; 86787; 86803

== ENCOUNTER → 2021-04-17 11:47 | Outpatient (BNVA) | payer OTHER, SELFPAY | PROVIDERS: PCP Internal Medicine; Visit Provider Physician Assistant Surgical ==

== ENCOUNTER → 2021-05-11 08:19 | Outpatient (BNVA) | payer OTHER, SELFPAY | PROVIDERS: PCP Internal Medicine; Visit Provider Dietitian, Registered ==

== ENCOUNTER → 2021-05-18 08:01 | Outpatient (BNVA) | payer OTHER, SELFPAY | PROVIDERS: PCP Internal Medicine; Visit Provider Physician Assistant Surgical ==

== ENCOUNTER → 2021-05-21 08:09 | Outpatient (BNVA) | payer OTHER, SELFPAY | PROVIDERS: PCP Internal Medicine; Visit Provider Dietitian, Registered ==

== ENCOUNTER → 2021-07-09 08:28 | Outpatient (BNVA) | payer OTHER, SELFPAY | PROVIDERS: PCP Internal Medicine; Visit Provider Dietitian, Registered ==

== ENCOUNTER → 2021-07-20 08:15 | Outpatient (BNVA) | payer OTHER, SELFPAY | PROVIDERS: PCP Internal Medicine; Visit Provider Dietitian, Registered ==

== ENCOUNTER → 2021-10-19 08:01 | Outpatient (BNVA) | payer OTHER, SELFPAY | PROVIDERS: PCP Internal Medicine; Visit Provider Physician Assistant Surgical | DX: E66.01 Morbid (severe) obesity due to excess calories (principal) ==

== ENCOUNTER 2022-02-04 13:49 | Outpatient (REF) | payer MEDICAID, SELFPAY ==
[2022-02-04 16:33] LABS: MANUAL DIFF FLAG NO
[2022-02-04 16:38] LABS: Basophils Percent Auto 0.2 % (0-2); Eosinophils Absolute Auto 0.1 X10*3/uL (0.0-0.4); Eosinophils Percent Auto 2.2 % (0-4); Hemoglobin 11.8 g/dl (12.0-16.0); Imm Gran Abs Auto 0.01 X10*3/uL (0.00-0.03); Imm Gran Pct Auto 0.2 % (0.0-0.4); Lymphocytes Absolute Auto 1.9 X10*3/uL (1.2-4.9); Lymphocytes Percent Auto 45.1 % (20-40); Mean Corpuscular HGB Conc 33.7 g/dl (31.0-35.0); Mean Corpuscular Hemoglobin 28.1 pg (27.0-33.0); Mean Corpuscular Volume 83.3 fL (80.0-98.0); Mean Platelet Volume 10.2 fL (9.4-12.3); Monocytes Absolute Auto 0.3 X10*3/uL (0.1-1.2); Monocytes Percent Auto 6.5 % (2-11); Neutrophils Absolute Auto 1.9 x10*3/uL (2.0-8.3); Neutrophils Percent Auto 45.8 % (45-73); Platelet Count 334 X10*3/uL (160-400); Red Cell Distribution Width 13.2 % (11.0-16.0); White Blood Count 4.2 X10*3/uL (4.8-10.8)
[2022-02-04 16:49] LABS: Alanine Aminotransferase 20 U/L (0-31); Albumin Level 4.2 g/dL (3.5-5.0); Alkaline Phosphatase 77 U/L (39-117); Anion Gap 14 (12-20); Aspartate Amino Transferase 15 U/L (5-31); Bilirubin Total 0.2 mg/dL (0.0-1.0); Blood Urea Nitrogen 11 mg/dL (9-16); Calcium 9.4 mg/dL (8.4-10.2); Carbon Dioxide 23 mmol/L (22-29); Chloride 107 mmol/L (96-108); Cholesterol 137 mg/dL; Estimated Glomerular Filt Rate > 60; Glucose Fasting 86 mg/dL (60-99); HDL Cholesterol 40 mg/dL; Iron 58 mcg/dL (30-160); LDL Cholesterol Calculated 81 mg/dl; Percent Iron Saturation 15 % (15-50); Potassium 4.1 mmol/L (3.3-5.1); Sodium 140 mmol/L (135-145); Total Iron Binding Capacity 399 mcg/dL (228-428); Total Protein 7.5 g/dL (6.5-8.0); Triglycerides 83 mg/dL; Unsaturated Iron Binding 341 ug/dL
[2022-02-04 17:11] LABS: TSH reflex Free T4 0.97 uIU/mL (0.32-4.0); Vitamin D 25-OH Total 36.7 ng/mL (>30)
[2022-02-04 17:40] LABS: Folate > 20.0 ng/mL (> or = 4.0); Vitamin B12 636 pg/mL (200-900)
[2022-02-10 00:56] LABS: Vitamin A 54 mcg/dL (38-98); Zinc 71 mcg/dL (60-130)
[2022-02-10 09:11] LABS: TS Negative Control Passed; TS Panel A 0; TS Panel B 0; TS Positive Control Passed; TSpotTB Negative (Negative)
[2022-02-11 11:11] LABS: Vitamin B1 18 nmol/L (8-30)
== END 2022-02-04 13:50 | disposition home or self-care (01) ==
LOC: HO.HMGCLDS 13:49
PROVIDERS: Absent Provider Physician Assistant Surgical; PCP Internal Medicine; Visit Provider Internal Medicine
DX: Z00.01 Encounter for general adult medical examination with abnormal findings (principal); E28.2 Polycystic ovarian syndrome; E66.01 Morbid (severe) obesity due to excess calories; Z11.1 Encounter for screening for respiratory tuberculosis
CPT/HCPCS: 36415; 80053; 80061; 82306; 82607; 82746; 83540; 84425; 84443; 84590; 84630; 85025; 86481

== ENCOUNTER → 2023-08-22 11:30 | Outpatient (BNVA) | payer MEDICAID, SELFPAY | PROVIDERS: PCP Internal Medicine; Visit Provider Physician Assistant Surgical ==

== ENCOUNTER 2024-06-08 15:27 | Outpatient (AMB) | payer OTHER, SELFPAY ==
[2024-06-08 15:28] VITALS: BP 122/80; PULSE 72; O2SAT 98; BMI 43.6
--- NOTE | 2024-06-08 15:28 | MHC.PC.OV ---
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: No Accompanied by: Self / Same As Patient Allergies No Known Allergies Allergy (Verified 06/08/24 15:29) Medication List - Last Reconciled 06/08/24 by Yuliya Bell MD No Known Home Meds Tobacco use date assessed: 06/08/24 Dental Screening Dental Screen Date: 06/08/24 Did you have a dental visit in the last 12 months?: Yes Did you have a dental problem in the last 6 months where you did not have access to dental care?: No Was dental information given to patient?: Patient has dentist HPI Annual PE HPI Details - The patient is a 34-year-old female presenting for physical exam last time seen was 2021 - Reports lab work for comprehensive metabolic panel due to consideration of weight loss medication (Ozempic). At [facility] - Anemia noted in previous labs; deemed not significant but requires monitoring. - Chronic scalp condition described as a thick scar and rash, likely keloid or psoriasis. - Attempted treatments include topical steroids and creams; surgery may be required due to persistent scarring and tissue hypertrophy. - Recent onset of flu, resolved without complication. - need immunizations titer for work Health Maintenance - Completed blood work for comprehensive metabolic panel. Done at [facility] patient will provide reports - enrolled in weight loss program medication options at [facility]. - Flu vaccination received at hospital. 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 Diagnostic results - Previous labs from 2021 indicated anemia; other labs (liver, kidneys, blood sugar) were within normal limits. Review of Systems - General: Denies current swelling, fever, or significant systemic complaints. - Head & Neck: Denies headache. - Gastrointestinal: Reports recent flu symptoms; denies vomiting, diarrhea, or constipation. - Musculoskeletal: Denies limb swelling or joint pain. - Dermatological: Reports chronic scalp lesion, likely keloid. - Neurological: No headaches no dizziness - Ear nose throat: No sore throat no hearing difficulty no ear pain - Cardiovascular: No syncope, no chest pain, no palpitations - Gastrointestinal: No nausea vomiting or diarrhea - Endocrine: No polyuria polydipsia no heat intolerance - Genitourinary: No dysuria Physical Exam General: Cooperative, healthy appearing, comfortable, no acute distress Orientation: Patient oriented x3 Limitations: None Head: Normal to inspection Ears: Within normal limit visually Nose: Normal external nose present Face and sinus: Normal facial exam Eyes: Appearance normal, extraocular movement intact pupils reactive Neck: Normal visual inspection and supple Respiratory: Normal respiratory effort and able to speak in complete sentences. Clear to auscultation, no stridor Cardiovascular: S1 and S2 GI: Normal to inspection. Soft to palpation and nontender Skin: Turgor normal. Chronic thick scar on scalp, possibly keloid or psoriasis, recommended surgical consultation for removal Neuro: Patient oriented x3, motor sensory intact, balance intact, tandem pass Extremities: Normal to inspection, no swelling of ankles or arms, no problem in the shoulders Patient Instructions - Schedule an appointment with a surgeon for evaluation and possible removal of scalp lesion. - Follow up on lab results and ensure they are communicated from [facility]. - Plan to book next physical exam. - lab order placed for immunization titers - Maintain updated immunization records - need OBGYN visit [facility] Medical History Depression PCOS (polycystic ovarian syndrome) Liver fibrosis Steatosis, liver Anemia GERD (gastroesophageal reflux disease) Lab test negative for COVID-19 virus Morbid obesity BMI 37.0-37.9, adult Left ventricular hypertrophy Surgical History History of sleeve gastrectomy Hx of foot surgery Obesity Hx of tonsillectomy Family History Father Mental health disorder Mother Hypertension Brain tumor Stroke Diabetes Mental health disorder Brother No problems noted. Sister No problems noted. Social History Housing: Apartment Are you a primary menagerie caretaker to a significant other at home: No Do you presently have visiting nurse or other home services: No Patient Tobacco Use Status: Never used Tobacco e-Cigarette/Vaping Use: Never Used Substance Use Type: Marijuana service: No Current occupational status: employed Cognitive needs: No Hearing needs: No Vision needs: No Questionnaire PHQ-9 Over the last 2 weeks, how often have you been bothered by any of the following problems? 1. Little interest or pleasure in doing things: not at all 2. Feeling down, depressed, or hopeless: not at all 3. Trouble falling or staying asleep, or sleeping too much: not at all 4. Feeling tired or having little energy: not at all 5. Poor appetite or overeating: not at all 6. Feeling bad about yourself - or that you are a failure or have let yourself or your family down: not at all 7. Trouble concentrating on things, such as reading the newspaper or watching television: not at all 8. Moving or speaking so slowly that other people could have noticed. Or the opposite - being so fidgety or restless that you have been moving around a lot more than usual: not at all 9. Thoughts that you would be better off or of hurting yourself in some way: not at all Total score: 0 Depression Screening Interpretation: Negative Depression Screening Done: Yes 31233 - PHQ-9 Billing: Yes Source: Developed by Drs. Pete London, Louise Laura, Santo Stauffer and colleagues, with an educational omaira from [employer]. Thrive Questionnaire Date Thrive assessed: 06/08/24 I am a: Patient What is your living situation today?: I choose not to answer this question Within the past 12 months, did the food you bought not last and you didn't have the money to get more?: I choose not to answer this question Within the past 12 months, did you worry whether your food would run out before you got money to buy more?: I choose not to answer this question Do you have trouble paying for medicines?: No Do you have trouble getting transportation to medical appointments?: I choose not to answer this question Do you have trouble paying your heating and electricity bill?: I choose not to answer this question Do you have trouble taking care of your child, family member or friend?: I choose not to answer this question Do you have trouble with day-to-day activities such as bathing, preparing meals, shopping, managing finances, etc.?: I choose not to answer this question Are you currently unemployed and looking for a job?: I choose not to answer this question Are you interested in more education?: I choose not to answer this question Please select the resources that you would like help with: Transportation and None Currently or been in a relationship where the following occur: I choose not to answer THRIVE Score: 0 AUDIT C Alcohol Use Questionnaire (AUDIT-C) 1. How often do you have a drink containing alcohol?: Never 3. How often do you have six or more drinks on one occasion?: Never Total Score: 0 Score Reviewed/Action Taken: Yes HIRA-7 AMB Questionnaire HIRA-7 Date HIRA - 7 assessed: 06/08/24 Feeling nervous, anxious, or on edge: 0 = Not at all Not being able to stop or control worryin = Not at all Worrying too much about different things: 0 = Not at all Trouble relaxin = Not at all Being so restless that it is hard to sit still: 0 = Not at all Becoming easily annoyed or irritable: 0 = Not at all Feeling afraid as if something awful might happen: 0 = Not at all Total HIRA-7 score (0-4 normal; 5-9 mild; 10-14 moderate; 15-21 severe): 0 Source: Developed by Drs. Pete London, Louise Laura, Santo Stauffer and colleagues, with an educational omaira from [employer]. HIRA-7 Assessment Billing HIRA-7 Assessment Tool: HIRA-7 Assessment 86733 Physical exam (Primary Care) Vital Signs: Last Vital Signs Pulse 72 06/08/24 15:28 BP 122/80 06/08/24 15:28 Pulse Ox 98 06/08/24 15:28 Oxygen Delivery Method Room Air 06/08/24 15:28 BMI result Body Mass Index 43.6 Tobacco/Smoking Status: Tobacco use Status Tobacco use date assessed 06/08/24 06/08/24 15:30 Patient Tobacco Use Status Never used Tobacco 06/08/24 15:30 e-Cigarette/Vaping Use Never Used 06/08/24 15:30 PHQ-9: PHQ-9 Score PHQ-9: Total score 0 06/08/24 15:30 Depression Screening Interpretation: Negative Thrive Assessment: Date of Thrive Assessment Date Thrive assessed 06/08/24 06/08/24 15:30 Currently or been in a relationship where the following occur: I choose not to answer Coding Level of Care Code Est Pt Level 3 (44884) Est Pt Prev Care 18-39y(61495) Diagnoses Encounter for general adult medical examination with abnormal findings Z00.01 Morbid obesity E66.01 Keloid scar of skin L91.0 Immunizations incomplete Z28.3 Additional Codes HIRA-7 Assessment Billing - HIRA-7 Assessment Tool: HIRA-7 Assessment 83322 ([id number]) PHQ-9 - 82080 - PHQ-9 Billing: Yes ([id number]) Assessment & Plan Assessment & Plan (1) Encounter for general adult medical examination with abnormal findings: Code(s): Z00.01 - Encounter for general adult medical examination with abnormal findings Category: Medical (2) Morbid obesity: Code(s): E66.01 - Morbid (severe) obesity due to excess calories Category: Medical (3) Keloid scar of skin: Code(s): L91.0 - Hypertrophic scar Category: Medical (4) Immunizations incomplete: Code(s): Z28.3 - Underimmunization status Category: Medical Plan - The patient is a 34-year-old female presenting for physical exam last time seen was 2021 - Reports lab work for comprehensive metabolic panel due to consideration of weight loss medication (Ozempic). At [facility] - Anemia noted in previous labs; deemed not significant but requires monitoring. - Chronic scalp condition described as a thick scar and rash, likely keloid or psoriasis. - Attempted treatments include topical steroids and creams; surgery may be required due to persistent scarring and tissue hypertrophy. - Recent onset of flu, resolved without complication. - need immunizations titer for work Health Maintenance - Completed blood work for comprehensive metabolic panel. Done at [facility] patient will provide reports - enrolled in weight loss program medication options at [facility]. - Flu vaccination received at hospital. 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 Diagnostic results - Previous labs from 2021 indicated anemia; other labs (liver, kidneys, blood sugar) were within normal limits. Review of Systems - General: Denies current swelling, fever, or significant systemic complaints. - Head & Neck: Denies headache. - Gastrointestinal: Reports recent flu symptoms; denies vomiting, diarrhea, or constipation. - Musculoskeletal: Denies limb swelling or joint pain. - Dermatological: Reports chronic scalp lesion, likely keloid. - Neurological: No headaches no dizziness - Ear nose throat: No sore throat no hearing difficulty no ear pain - Cardiovascular: No syncope, no chest pain, no palpitations - Gastrointestinal: No nausea vomiting or diarrhea - Endocrine: No polyuria polydipsia no heat intolerance - Genitourinary: No dysuria Physical Exam General: Cooperative, healthy appearing, comfortable, no acute distress Orientation: Patient oriented x3 Limitations: None Head: Normal to inspection Ears: Within normal limit visually Nose: Normal external nose present Face and sinus: Normal facial exam Eyes: Appearance normal, extraocular movement intact pupils reactive Neck: Normal visual inspection and supple Respiratory: Normal respiratory effort and able to speak in complete sentences. Clear to auscultation, no stridor Cardiovascular: S1 and S2 GI: Normal to inspection. Soft to palpation and nontender Skin: Turgor normal. Chronic thick scar on scalp, possibly keloid or psoriasis, recommended surgical consultation for removal Neuro: Patient oriented x3, motor sensory intact, balance intact, tandem pass Extremities: Normal to inspection, no swelling of ankles or arms, no problem in the shoulders Patient Instructions - Schedule an appointment with a surgeon for evaluation and possible removal of scalp lesion. - Follow up on lab results and ensure they are communicated from [facility]. - Plan to book next physical exam. - lab order placed for immunization titers - Maintain updated immunization records - need OBGYN visit Orders: Orders Hepatitis B Surface Antibody Today Z28.3 - Underimmunization status Mumps Virus IgG Antibody Today Z28.3 - Underimmunization status Rubella IgG Antibody Today Z28.3 - Underimmunization status Rubeola IgG (Measles) Today Z28.3 - Underimmunization status Varicella IgG Antibody Today Z28.3 - Underimmunization status T Spot TB Today Z28.3 - Underimmunization status Tetanus Antitoxiod Antibody Today Z28.3 - Underimmunization status LDL Cholesterol Direct Today Z28.3 - Underimmunization status Referrals [facility] Referral Z01.419 - Encounter for gynecological examination (general) (routine) without abnormal findings General Surgery Referral L91.0 - Hypertrophic scar
== END 2024-06-08 15:49 | disposition home or self-care (01) ==
PROVIDERS: PCP Internal Medicine; Visit Provider Internal Medicine
DX: Z00.00 Encounter for general adult medical examination without abnormal findings (principal); L91.0 Hypertrophic scar; E66.01 Morbid (severe) obesity due to excess calories; Z68.41 Body mass index [BMI] 40.0-44.9, adult; Z28.9 Immunization not carried out for unspecified reason

== ENCOUNTER → 2024-06-08 15:27 | Outpatient (BNVA) | payer OTHER, SELFPAY | PROVIDERS: Visit Provider Internal Medicine | DX: Z00.01 Encounter for general adult medical examination with abnormal findings (principal); E66.01 Morbid (severe) obesity due to excess calories; L91.0 Hypertrophic scar; Z28.39 Other underimmunization status | CPT/HCPCS: 96127 ==

== ENCOUNTER 2024-06-12 10:27 | Outpatient (REF) | payer OTHER, SELFPAY ==
[2024-06-13 06:58] LABS: HBS Num1 328.62 mIU/mL (0-7.99); ~Hepatitis B Surface Antibody REACTIVE (Nonreactive)
[2024-06-13 19:54] LABS: Varicella IgG Antibody 9.71 S/CO
[2024-06-13 20:03] LABS: Rubella IgG Antibody 8.21 Index; Rubeola IgG (Measles) >300.00 AU/mL
[2024-06-14 03:38] LABS: LDL Cholesterol Direct 72 mg/dL (<100)
[2024-06-15 14:33] LABS: TS Negative Control Passed; TS Panel A 0; TS Panel B 0; TS Positive Control Passed; TSpotTB Negative (Negative)
== END 2024-06-12 10:28 | disposition home or self-care (01) ==
LOC: HO.HMGCLDS 10:27
PROVIDERS: PCP Internal Medicine; Visit Provider Internal Medicine
DX: Z28.39 Other underimmunization status (principal)
CPT/HCPCS: 36415; 83721; 86481; 86706; 86735; 86762; 86765; 86774; 86787

== ENCOUNTER 2024-06-14 08:23 | Outpatient (AMB) | payer OTHER, SELFPAY ==
--- NOTE | 2024-06-14 08:52 | A.OFFPC_ITS ---
Intake Visit Reasons: Test Result Allergies No Known Allergies Allergy (Verified 06/14/24 08:52) Medication List - Last Reconciled 06/14/24 by Yuliya Bell MD No Known Home Meds Tobacco use date assessed: 06/14/24 Dental Screening Dental Screen Date: 06/14/24 Did you have a dental visit in the last 12 months?: Yes Did you have a dental problem in the last 6 months where you did not have access to dental care?: No Was dental information given to patient?: Patient has dentist HPI Test Result HPI Details Patient is a 34-year-old female who had labs done at her weight loss program at [facility] Patient says that she was notified that her iron level is 9 And vitamin-D level is low She will provide me with the reports Patient has a history of iron-deficiency anemia in the past I have sent supplement for iron as well as for vitamin-D She also wanted to have immunization titers done which are back and acceptable T spot is still pending. Further lab work through [facility] Medical History Depression PCOS (polycystic ovarian syndrome) Liver fibrosis Steatosis, liver Anemia GERD (gastroesophageal reflux disease) Lab test negative for COVID-19 virus Morbid obesity BMI 37.0-37.9, adult Left ventricular hypertrophy Surgical History History of sleeve gastrectomy Hx of foot surgery Obesity Hx of tonsillectomy Family History Father Mental health disorder Mother Hypertension Brain tumor Stroke Diabetes Mental health disorder Brother No problems noted. Sister No problems noted. Social History Housing: Apartment Are you a primary special needs caregiver to a significant other at home: No Do you presently have visiting nurse or other home services: No Patient Tobacco Use Status: Never used Tobacco e-Cigarette/Vaping Use: Never Used Substance Use Type: Marijuana service: No Current occupational status: employed Cognitive needs: No Hearing needs: No Vision needs: No Questionnaire PHQ-9 Over the last 2 weeks, how often have you been bothered by any of the following problems? 1. Little interest or pleasure in doing things: not at all 2. Feeling down, depressed, or hopeless: not at all 3. Trouble falling or staying asleep, or sleeping too much: not at all 4. Feeling tired or having little energy: not at all 5. Poor appetite or overeating: not at all 6. Feeling bad about yourself - or that you are a failure or have let yourself or your family down: not at all 7. Trouble concentrating on things, such as reading the newspaper or watching television: not at all 8. Moving or speaking so slowly that other people could have noticed. Or the opposite - being so fidgety or restless that you have been moving around a lot more than usual: not at all 9. Thoughts that you would be better off or of hurting yourself in some way: not at all Total score: 0 Depression Screening Interpretation: Negative Depression Screening Done: Yes 92940 - PHQ-9 Billing: Yes Source: Developed by Drs. Pete London, Louise Laura, Santo Stauffer and colleagues, with an educational omaira from [employer]. Thrive Questionnaire Date Thrive assessed: 06/14/24 I am a: Patient What is your living situation today?: I choose not to answer this question Within the past 12 months, did the food you bought not last and you didn't have the money to get more?: I choose not to answer this question Within the past 12 months, did you worry whether your food would run out before you got money to buy more?: I choose not to answer this question Do you have trouble paying for medicines?: No Do you have trouble getting transportation to medical appointments?: I choose not to answer this question Do you have trouble paying your heating and electricity bill?: I choose not to answer this question Do you have trouble taking care of your child, family member or friend?: I choose not to answer this question Do you have trouble with day-to-day activities such as bathing, preparing meals, shopping, managing finances, etc.?: I choose not to answer this question Are you currently unemployed and looking for a job?: I choose not to answer this question Are you interested in more education?: I choose not to answer this question Please select the resources that you would like help with: Transportation and None Currently or been in a relationship where the following occur: I choose not to answer THRIVE Score: 0 AUDIT C Alcohol Use Questionnaire (AUDIT-C) 1. How often do you have a drink containing alcohol?: Never 3. How often do you have six or more drinks on one occasion?: Never Total Score: 0 Score Reviewed/Action Taken: Yes HIRA-7 AMB Questionnaire HIRA-7 Date HIRA - 7 assessed: 06/14/24 Feeling nervous, anxious, or on edge: 0 = Not at all Not being able to stop or control worryin = Not at all Worrying too much about different things: 0 = Not at all Trouble relaxin = Not at all Being so restless that it is hard to sit still: 0 = Not at all Becoming easily annoyed or irritable: 0 = Not at all Feeling afraid as if something awful might happen: 0 = Not at all Total HIRA-7 score (0-4 normal; 5-9 mild; 10-14 moderate; 15-21 severe): 0 Source: Developed by Drs. Pete London, Louise Laura, Santo Stauffer and colleagues, with an educational omaira from [employer]. HIRA-7 Assessment Billing HIRA-7 Assessment Tool: HIRA-7 Assessment 57597 Review of Systems Const Denies chills and Denies fever(s) ENT Denies epistaxis and Denies nasal discharge Card Denies chest pain Resp Denies chest congestion, Denies cough and Denies hemoptysis GI Denies diarrhea and Denies nausea Skin/Breast Denies rash Neuro Reports no additional complaints Psych Reports no additional complaints Endo Reports no additional complaints Physical exam (Primary Care) Tobacco/Smoking Status: Tobacco use Status Tobacco use date assessed 06/14/24 06/14/24 08:53 Patient Tobacco Use Status Never used Tobacco 06/14/24 08:53 e-Cigarette/Vaping Use Never Used 06/14/24 08:53 PHQ-9: PHQ-9 Score PHQ-9: Total score 0 06/14/24 09:29 Depression Screening Interpretation: Negative Thrive Assessment: Date of Thrive Assessment Date Thrive assessed 06/14/24 06/14/24 08:53 Currently or been in a relationship where the following occur: I choose not to answer Telehealth Telehealth Telehealth Platform: [employer] Location of provider rendering services: practice address Location of patient: address on file Patient Identification confirmed using: Name, : Yes Telehealth method: voice only Patient verbally consented to treatment: Yes Patient verbally consented to billing insurance company: Yes Patient informed of any privacy concerns related to visit: Yes Minutes spent on Phone/Video with Pt.: 13 Coding Level of Care Code Tele Est Pt Level 3 (51092) Diagnoses Iron deficiency E61.1 Vitamin D deficiency E55.9 Additional Codes HIRA-7 Assessment Billing - HIRA-7 Assessment Tool: HIRA-7 Assessment 53052 ([id number]) PHQ-9 - 57633 - PHQ-9 Billing: Yes ([id number]) Assessment & Plan Assessment & Plan (1) Iron deficiency: Code(s): E61.1 - Iron deficiency Category: Medical (2) Vitamin D deficiency: Code(s): E55.9 - Vitamin D deficiency, unspecified Category: Medical Plan Patient is a 34-year-old female who had labs done at her weight loss program at [facility] Patient says that she was notified that her iron level is 9 And vitamin-D level is low She will provide me with the reports Patient has a history of iron-deficiency anemia in the past I have sent supplement for iron as well as for vitamin-D She also wanted to have immunization titers done which are back and acceptable T spot is still pending. Further lab work through [facility] Medications: New cholecalciferol (vitamin D3) 25 mcg PO DAILY 90 days 90 caps 1RF ferrous sulfate 324 mg PO ONCE 90 days 90 tabs 0RF
== END 2024-06-14 09:33 | disposition home or self-care (01) ==
LOC: HO.HMCC 08:23
PROVIDERS: PCP Internal Medicine; Visit Provider Internal Medicine
DX: E61.1 Iron deficiency (principal); E55.9 Vitamin D deficiency, unspecified

== ENCOUNTER → 2024-06-14 08:23 | Outpatient (BNVA) | payer OTHER, SELFPAY | PROVIDERS: PCP Internal Medicine; Visit Provider Internal Medicine | DX: E61.1 Iron deficiency (principal); E55.9 Vitamin D deficiency, unspecified | CPT/HCPCS: 96127 ==

== ENCOUNTER 2024-06-27 09:44 | Outpatient (AMB) | payer OTHER, SELFPAY ==
--- NOTE | 2024-06-27 09:38 | A.OFFVIS_ITS ---
VS Expanded 06/27/24 09:39 Height 5 ft 6 in Weight 272 lb BMI 43.9 Intake Visit Reasons: TV PO LSG 08/05/2020 Allergies No Known Allergies Allergy (Verified 06/14/24 08:52) Medication List - Last Reconciled 06/27/24 by KERRI Dillon cholecalciferol (vitamin D3) 25 mcg PO DAILY 90 days ferrous sulfate 324 mg PO ONCE 90 days HPI Comments Details: This?is a?34?yo female who is s/p LSG 08/05/2020. Presents for 3 year 10 month post op visit. Weight gain of 29lbs since last OV in 2021.? Pt had a baby 1 year ago, not currently . Pt recently had bloodwork and based on those results was started on iron and vit D. She requests a prescription for GLP1 agonist. Was trying to get through [facility] but was unable to. Present meal plan includes: Premier protein shakes in the past - wants to get back to a shake based plan. [facility] Medical History Depression PCOS (polycystic ovarian syndrome) Liver fibrosis Steatosis, liver Anemia GERD (gastroesophageal reflux disease) Lab test negative for COVID-19 virus Morbid obesity BMI 37.0-37.9, adult Left ventricular hypertrophy Surgical History History of sleeve gastrectomy Hx of foot surgery Obesity Hx of tonsillectomy Family History Father Mental health disorder Mother Hypertension Brain tumor Stroke Diabetes Mental health disorder Brother No problems noted. Sister No problems noted. Social History Housing: Apartment Are you a primary primary health care nurse to a significant other at home: No Do you presently have visiting nurse or other home services: No Patient Tobacco Use Status: Never used Tobacco e-Cigarette/Vaping Use: Never Used Substance Use Type: Marijuana service: No Current occupational status: employed Cognitive needs: No Hearing needs: No Vision needs: No Telehealth Telehealth Telehealth Platform: Telephone Location of provider rendering services: practice address Location of patient: address on file Patient Identification confirmed using: Name, : Yes Telehealth method: voice only Patient verbally consented to treatment: Yes Patient verbally consented to billing insurance company: Yes Patient informed of any privacy concerns related to visit: Yes Minutes spent on Phone/Video with Pt.: 16 Assessment & Plan Assessment & Plan (1) Obesity (BMI 30-39.9): Code(s): E66.9 - Obesity, unspecified Category: Medical (2) S/P laparoscopic sleeve gastrectomy: Code(s): Z98.84 - Bariatric surgery status Category: Surgical Plan I encouraged pt to ask her PCP about starting GLP1 agonist- pt aware I can provide letter of support or other documents if PCP is willing to prescribe. In the meantime she plans to restart a shake based plan, has used Premier in the past- recommended 4 shakes per day. Pt will contact office if she needs documentation for PCP. I spent a total of 30 minutes reviewing/updating records, examining the patient and counseling the patient on weight management as detailed above.
[2024-06-27 09:39] VITALS: BMI 43.9
--- OUTSIDE RECORDS SUMMARY | 2024-06-27 10:28 | XMS_ITS | Clinical Summary ---
Author Organization [address] Address [address] [place] [id number] Phone Care Team Providers Care Donor Services Technician Name Role Phone Physician, Pcp Unknown Primary Care Provider Azul vailable Allergies Active Allergy Reactions Criticality Noted Date Comments Clomiphene Hives 05/04/2024 Medications Medication Sig Dispensed Refills Start Date End Date Status ergocalciferol (VITAMIN D-2) 1,250 mcg (50,000 unit) capsule Take 1 capsule (50,000 Units total) by mouth 1 (one) time per week for 8 doses. 8 capsule 06/11/2024 07/31/2024 Active ascorbic acid (VITAMIN C) 250 MG chewable tablet Chew 1 tablet (250 mg total) 3 (three) times a day. 270 tablet 06/11/2024 09/09/2024 Active ferrous sulfate 325 mg (65 mg iron) EC tablet Take 1 tablet (325 mg total) by mouth 3 (three) times a day with meals. Do not crush, chew, or split. 270 tablet 06/11/2024 09/09/2024 Active thiamine 100 mg tablet Take 1 tablet (100 mg total) by mouth 2 (two) times a day. 60 tablet 06/14/2024 07/14/2024 Active Encounters Date Type Department Care Team Description 05/08/2024 Telephone Bariatric Surgery [address] [place] [address] Marion West MD Endoscopy 05/04/2024 2:30 PM EST Office Visit Bariatric Surgery [address] [phone] Marion West MD Prediabetes (Primary Dx) from Last 3 Months Surgical History Surgery Date Site/Laterality Comments ABDOMINAL SURGERY PARTIAL GASTRECTOMY 06/06/2019 - 06/05/2020 Medical History Medical History Date Comments Hernia, internal Obesity Social History Tobacco Use Types Packs/Day Years Used Date Smoking Tobacco: Never Smokeless Tobacco: Never Tobacco Cessation:Counseling Given: Not Answered Sex and Gender Information Value Date Recorded Sex Assigned at Not on file Gender Identity Not on file Sexual Orientation Not on file Job Start Date Occupation Industry Not on file Not on file Not on file Obstetrics History Last Filed Vital Signs Vital Sign Reading Time Taken Comments Blood Pressure 133/73 05/04/2024 2:29 PM EST Pulse 89 05/04/2024 2:29 PM EST Temperature - - Respiratory Rate - - Oxygen Saturation 97% 05/04/2024 2:29 PM EST Inhaled Oxygen Concentration - - Weight 124 kg (274 lb) 05/04/2024 2:29 PM EST Height 167.6 cm (5' 6 ) 05/04/2024 2:29 PM EST Body Mass Index 44.22 05/04/2024 2:29 PM EST Plan of Treatment Upcoming Encounters Date Type Department Care Team (Late st Contact Info) Description 07/09/2024 1:30 PM EST Office Visit Bariatric Surgery - Leiter [address] [facility] [address] [place] [address] Brooklynn Lopez PA [address] [place] [address] [place] [address] Health Maintenance Due Date Last Done Comments DTaP,Tdap,and Td Vaccines (1 - Tdap) 2011 Hepatitis B Vaccines (1 of 3 - 19+ 3-dose series) 2011 Cervical Cancer Screening: P ap Smear 2013 Depression Screening 01/06/2024 HIV Screening 01/06/2024 Hepatitis C Screening 01/06/2024 Social Influencers of Health Screening 01/06/2024 COVID-19 Vaccine (1 - 2023-2 5 season) 2024 Cholesterol Screening (Lipid Panel) 06/08/2029 06/08/2024 Influenza Vaccine Completed 03/12/2024 HIB Vaccines Aged Out No longer eligi ble based on patient's age to complete this topic HPV Vaccines Aged Out No longer eligi ble based on patient's age to complete this topic Hepatitis A Vaccines Aged Out No long er eligible based on patient's age to complete this topic IPV Vaccines Aged Out No longer eligi ble based on patient's age to complete this topic MMR Vaccines Aged Out No longer eligi ble based on patient's age to complete this topic Meningococcal ACWY Vaccine Aged Out N o longer eligible based on patient's age to complete this topic Pneumococcal Vaccine: Pediat rics (0 to 5 Years) and At-Risk Patients (6 to 64 Years) Aged Out No longer eligi ble based on patient's age to complete this topic RSV Immunization Patients Un sim 20 months Aged Out No longer eligible b ased on patient's age to complete this topic Varicella Vaccines Aged Out No longer eligible based on patient's age to complete this topic Procedures Procedure Name Priority Date/Time Associated Diagnosis Comments EXTERNAL CLINICAL LAB 06/13/2024 CBC WITH AUTO DIFFERENTIAL Routine 06/08/2024 1:41 PM EST Prediabetes VITAMIN D 25 HYDROXY Routine 06/08/2024 1:41 PM EST Diabetes mellitus, latent VITAMIN B1 Routine 06/08/2024 1:41 PM EST Diabetes mellitus, latent HEMOGLOBIN A1C Routine 06/08/2024 1:41 PM EST Prediabetes PREALBUMIN Routine 06/08/2024 1:41 PM EST Prediabetes FOLATE Routine 06/08/2024 1:41 PM EST Prediabetes VITAMIN B12 Routine 06/08/2024 1:41 PM EST Prediabetes FERRITIN Routine 06/08/2024 1:41 PM EST Prediabetes LIPID PANEL Routine 06/08/2024 1:41 PM EST Prediabetes IRON AND TIBC Routine 06/08/2024 1:41 PM EST Prediabetes CBC AND DIFFERENTIAL Routine 06/08/2024 1:41 PM EST Prediabetes ALBUMIN Routine 06/08/2024 1:41 PM EST Prediabetes from Last 3 Months Results * External clinical lab (06/13/2024) Provider [facility] LAB BLOOD ORDERA BLES * (ABNORMAL) CBC auto differential (06/08/2024 1:41 PM EST) [facility] WBC 4.9 4.0 - 10.5 K/mcL LAB HEMETOLOGY METHOD 06/08/2024 4:54 PM [facility] RBC 3.94(L) 4.20 - 5.40 M/mcL LAB HEMETOLOGY METHOD 06/08/2024 4:54 PM [facility] Hemoglobin 9.3(L) 12.5 - 16.0 g/dL LAB HEMETOLOGY METHOD 06/08/2024 4:54 PM [facility] Hematocrit 28.3(L) 37.0 - 47.0 % LAB HEMETOLOGY METHOD 06/08/2024 4:54 PM [facility] MCV 71.9(L) 78.0 - 100.0 FL LAB HEMETOLOGY METHOD 06/08/2024 4:54 PM [facility] MCH 23.7(L) 25.0 - 33.0 pcg LAB HEMETOLOGY METHOD 06/08/2024 4:54 PM [facility] MCHC 33.0 32.0 - 36.0 g/dL LAB HEMETOLOGY METHOD 06/08/2024 4:54 PM [facility] RDW 15.3 12.1 - 16.2 % LAB HEMETOLOGY METHOD 06/08/2024 4:54 PM [facility] Platelets 395 150 - 450 K/mcL LAB HEMETOLOGY METHOD 06/08/2024 4:54 PM [facility] MPV 8.0 7.4 - 11.4 FL LAB HEMETOLOGY METHOD 06/08/2024 4:54 PM [facility] Neutrophils Relative 42.5(L) 44.0 - 74.0 % LAB HEMETOLOGY METHOD 06/08/2024 4:54 PM [facility] Lymphocytes Relative 47.8 20.0 - 48.0 % LAB HEMETOLOGY METHOD 06/08/2024 4:54 PM [facility] Monocytes Relative 6.5 2.0 - 12.0 % LAB HEMETOLOGY METHOD 06/08/2024 4:54 PM [facility] Eosinophils Relative 2.8 0.0 - 6.0 % LAB HEMETOLOGY METHOD 06/08/2024 4:54 PM [facility] Basophils Relative 0.4 0.0 - 2.0 % LAB HEMETOLOGY METHOD 06/08/2024 4:54 PM [facility] Neutrophils Absolute 2.10 1.80 - 7.80 K/mcL LAB HEMETOLOGY METHOD 06/08/2024 4:54 PM [facility] Lymphocytes Absolute 2.30 1.00 - 3.20 K/mcL LAB HEMETOLOGY METHOD 06/08/2024 4:54 PM [facility] Monocytes Absolute 0.30 0.00 - 0.80 K/mcL LAB HEMETOLOGY METHOD 06/08/2024 4:54 PM [facility] Eosinophils Absolute 0.10 0.00 - 0.50 K/mcL LAB HEMETOLOGY METHOD 06/08/2024 4:54 PM [facility] Basophils Absolute 0.00 0.00 - 0.20 K/mcL LAB HEMETOLOGY METHOD 06/08/2024 4:54 PM [facility] Blood Venous blood specimen / Unknown Venipuncture / Unknown 06/08/2024 1:41 PM EST 06/08/2024 4:39 PM EST Marion West MD LAB BLOOD ORDERA BLES [facility] [address] [place] [address], [place] [phone] * (ABNORMAL) Iron and TIBC (06/08/2024 1:41 PM EST) Iron 19(L) 37 - 170 mcg/dL LAB CHEMISTRY METHOD 06/08/2024 5:16 PM EST [facility] UIBC 369(H) 155 - 355 mcg/dL LAB CHEMISTRY METHOD 06/08/2024 5:16 PM EST [facility] TIBC 388 250 - 450 mcg/dL LAB CHEMISTRY METHOD 06/08/2024 5:16 PM EST [facility] Iron Saturation 5(L) 20 - 45 % LAB CHEMISTRY METHOD 06/08/2024 5:16 PM EST [facility] Blood Venous blood specimen / Unknown Venipuncture / Unknown 06/08/2024 1:41 PM EST 06/08/2024 4:37 PM EST Marion West MD LAB BLOOD ORDERA BLES [facility] [address] [place] [address], [place] [phone] * (ABNORMAL) Vitamin D 25 hydroxy (06/08/2024 1:41 PM EST) Vit D, 25-Hydroxy 20.5(L) 30.0 - 100.0 ng/mL LAB CHEMISTRY METHOD 06/08/2024 5:40 PM EST [facility] Blood Venous blood specimen / Unknown Venipuncture / Unknown 06/08/2024 1:41 PM EST 06/08/2024 4:37 PM EST Narrative [facility] - 06/08/2024 5:40 PM EST Vitamin D ?Reference Range ng/ml Deficiency ? <10 Insufficiency ??10-30 Sufficiency ?30-100 Toxicity ? >100 Marion West MD LAB BLOOD ORDERA BLES Performing Organization Address [facility] Co de Phone Number [facility] [address] [place] [address], * (ABNORMAL) Vitamin B1 (06/08/2024 1:41 PM EST) Vitamin B1 Whole Blood 37(L) 38 - 122 ug/L 06/13/2024 6:21 AM EST [facility] Comment: This test was developed and the performance characteristics determined by [facility]. It has not been cleared or approved by the FDA. The laboratory is regulated under CLIA as qualified to perform high-complexity testing. This test is used for patient testing purposes. It should not be regarded as investigational or for research. Test performed at [facility], [address] [place], [place] ??[address] ? [phone] Vanesa Montiel MD, PhD - [employer] Blood Venous blood specimen / Unknown Venipuncture / Unknown 06/08/2024 1:41 PM EST 06/08/2024 4:34 PM EST Marion West MD LAB BLOOD ORDERA BLES Performing Organization Address [facility]/ZIP Co de Phone Number [facility] [address] [place] [address] * Prealbumin (06/08/2024 1:41 PM EST) Prealbumin 20 17 - 34 mg/dL LAB CHEMISTRY METHOD 06/08/2024 5:16 PM EST [facility] Blood Venous blood specimen / Unknown Venipuncture / Unknown 06/08/2024 1:41 PM EST 06/08/2024 4:37 PM EST Marion West MD LAB BLOOD ORDERA BLES [facility] [address] [place] [address], [place] [phone] * Hemoglobin A1c (06/08/2024 1:41 PM EST) Hemoglobin A1C 5.6 <5.7 % LAB CHEMISTRY METHOD 06/09/2024 8:00 AM EST [facility] Mean Bld Glu Estim. 114 mg/dL LAB CHEMISTRY METHOD 06/09/2024 8:00 AM EST [facility] Blood Venous blood specimen / Unknown Venipuncture / Unknown 06/08/2024 1:41 PM EST 06/08/2024 4:39 PM EST Narrative [facility] - 06/09/2024 8:00 AM EST ADA Guidelines: ?? Increased risk Diabetes Mellitus A1C 5.7 - 6.4% and Fasting Blood Glucose 100 - 125 mg/dl Diabetes Mellitus: A1C >6.5% and Fasting Blood Glucose >125 mg/dl Marion West MD LAB BLOOD ORDERA BLES Performing Organization Address City/[facility]/ZIP Co de Phone Number [facility] [address] [place] [address], [place] [phone] * Folate (06/08/2024 1:41 PM EST) Pathologist [facility] Folate 16.3 >=3.0 ng/ml LAB CHEMISTRY METHOD 06/08/2024 5:40 PM EST [facility] Blood Venous blood specimen / Unknown Venipuncture / Unknown 06/08/2024 1:41 PM EST 06/08/2024 4:37 PM EST Marion West MD LAB BLOOD ORDERA BLES [facility] [address] [place] [address], [place] [phone] * (ABNORMAL) Ferritin (06/08/2024 1:41 PM EST) Pathologist [facility] Ferritin 7(L) 10 - 120 ng/mL LAB CHEMISTRY METHOD 06/08/2024 5:40 PM EST [facility] Blood Venous blood specimen / Unknown Venipuncture / Unknown 06/08/2024 1:41 PM EST 06/08/2024 4:37 PM EST Marion West MD LAB BLOOD ORDERA BLES [facility] [address] [place] [address], [place] [phone] * Vitamin B12 (06/08/2024 1:41 PM EST) [facility] Vitamin B-12 417 180 - 914 pcg/mL LAB CHEMISTRY METHOD 06/08/2024 5:40 PM EST [facility] Blood Venous blood specimen / Unknown Venipuncture / Unknown 06/08/2024 1:41 PM EST 06/08/2024 4:37 PM EST Marion West MD LAB BLOOD ORDERA BLES [facility] [address] [place] [address], [place] [phone] * Albumin (06/08/2024 1:41 PM EST) Pathologist [facility] Albumin 4.1 3.5 - 5.0 g/dL LAB CHEMISTRY METHOD 06/08/2024 5:16 PM EST [facility] Blood Venous blood specimen / Unknown Venipuncture / Unknown 06/08/2024 1:41 PM EST 06/08/2024 4:37 PM EST Marion West MD LAB BLOOD ORDERA BLES [facility] [address] [place] [address], [place] [phone] * (ABNORMAL) Lipid panel (06/08/2024 1:41 PM EST) Cholesterol 113 0 - 200 mg/dL LAB CHEMISTRY METHOD 06/08/2024 5:16 PM EST [facility] Triglycerides 77 <150 mg/dL LAB CHEMISTRY METHOD 06/08/2024 5:16 PM EST [facility] HDL 34(L) 35 - 80 mg/dL LAB CHEMISTRY METHOD 06/08/2024 5:16 PM EST [facility] LDL Calculated 64 50 - 130 mg/dL LAB CHEMISTRY METHOD 06/08/2024 5:16 PM EST [facility] VLDL Cholesterol José 15.4 mg/dL LAB CHEMISTRY METHOD 06/08/2024 5:16 PM EST [facility] Comment:No established refer ence range. Blood Venous blood specimen / Unknown Venipuncture / Unknown 06/08/2024 1:41 PM EST 06/08/2024 4:37 PM EST Marion West MD LAB BLOOD ORDERA BLES Performing Organization Address City/[facility]/ZIP Co de Phone Number [facility] [address] [place] [address], [place] [phone] from Last 3 Months Care Teams Donor Services Technician Relationship Specialty Start Date End Date Physician, Pcp Unknown PCP - General 05/07/24
== END 2024-06-27 10:26 | disposition home or self-care (01) ==
LOC: HO.HBS 09:44
PROVIDERS: PCP Internal Medicine; Visit Provider Physician Assistant Surgical
DX: E66.813 Obesity, class 3 (principal); Z68.41 Body mass index [BMI] 40.0-44.9, adult; Z90.3 Acquired absence of stomach [part of]; Z98.84 Bariatric surgery status
CPT/HCPCS: 98967

== ENCOUNTER → 2024-06-27 09:44 | Outpatient (BNVA) | payer OTHER, SELFPAY | PROVIDERS: PCP Internal Medicine; Visit Provider Physician Assistant Surgical ==

== ENCOUNTER 2024-07-02 13:02 | Outpatient (AMB) | payer OTHER, SELFPAY ==
--- NOTE | 2024-07-02 13:05 | MHC.OFFVIS ---
Vital Signs 07/02/24 13:06 Height 5 ft 6 in Weight 270 lb BMI 43.6 BP 120/75 Blood Pressure Location Rt brachial Position Sitting Pulse 102 H Intake Visit Reasons: Hypertrophic scar Intake Note: Patient referred by pcp Dr. Bell for evaluation of keloid scar on scalp. Present for yrs. Reports hx of psoriasis. Previously treated steroid injections. Patient c/o: itch, bleeds, tender with touch. Planner Scheduler Required: No Accompanied by: Self / Same As Patient Allergies clomiphene [From Clomid] Allergy (Mild, Verified 07/02/24 13:16) [facility] prednylidene Allergy (Mild, Verified 07/02/24 13:16) Blister HPI Comments Details: Patient presents for evaluation of 2 growth type processes involving the posterior scalp area. The patient is calling these hypertrophic/keloid scars although she has never had surgery to this area before. Patient also has been told this is a type of psoriasis although has not had this area further evaluated. She has no other such lesions elsewhere in her body. Chart was reviewed and patient evaluated [facility] Medical History Depression PCOS (polycystic ovarian syndrome) Liver fibrosis Steatosis, liver Anemia GERD (gastroesophageal reflux disease) Lab test negative for COVID-19 virus Morbid obesity BMI 37.0-37.9, adult Left ventricular hypertrophy Surgical History History of sleeve gastrectomy Hx of foot surgery Obesity Hx of tonsillectomy Family History Father Mental health disorder Mother Hypertension Brain tumor Stroke Diabetes Mental health disorder Brother No problems noted. Sister No problems noted. Social History Housing: Apartment Are you a primary care support representative to a significant other at home: No Do you presently have visiting nurse or other home services: No Patient Tobacco Use Status: Never used Tobacco e-Cigarette/Vaping Use: Never Used Substance Use Type: Marijuana service: No Current occupational status: employed Cognitive needs: No Hearing needs: No Vision needs: No Physical Exam Vital Signs: Last Vital Signs Pulse 102 H 07/02/24 13:06 BP 120/75 07/02/24 13:06 BMI result Body Mass Index 43.6 HEENT Other: Patient has 2 areas measuring roughly 10 x 3 and 6 x 3 transversely involving the mid posterior scalp area of elevated erythematous chronic scarring which actually would be hypertrophic scar/keloid diagnosis if she had had prior incisions here although as noted above she has not had any prior trauma or surgery to the areas. Unsure if this perhaps could be even a hidradenitis suppurativa type pathology. Assessment & Plan Assessment & Plan (1) Keloid scar of skin: Code(s): L91.0 - Hypertrophic scar Category: Surgical Plan: Because of the unusual appearance and precise etiology of this area, my recommendation is for patient to be evaluated by Plastic surgery should resection ultimately be required because of the extent of resection required to completely excise the to pathologies. Patient understands and agrees. Arrangements were made for this. All questions answered Orders: Referrals Plastic Surgery Referral L73.2 - Hidradenitis suppurativa, L91.0 - Hypertrophic scar Coding Level of Care Code New Pt Level 4 (17045) Diagnoses Keloid scar of skin L91.0
[2024-07-02 13:06] VITALS: BP 120/75; PULSE 102; BMI 43.6
--- OUTSIDE RECORDS SUMMARY | 2024-07-02 17:40 | XMS_ITS | Clinical Summary ---
Author Organization [address] Address [address] [place] [phone] Phone Care Team Providers Care Director Of Estate Name Role Phone Physician, Pcp Unknown Primary [...] Care Team Description 05/08/2024 Telephone Bariatric Surgery [address] [place] [address] Marion West MD Endoscopy 05/04/2024 2:30 PM EST Office Visit Bariatric Surgery [address] [phone] Marion West MD Prediabetes (Primary [...] PM EST Office Visit Bariatric Surgery - [place] [address] [facility] [address] [place] [address] Brooklynn Lopez PA [address] [place] [address] [place] [address] Health Maintenance Due Date Last Done Comments [...] CBC auto differential (06/08/2024 1:41 PM EST) [facility] WBC 4.9 4.0 - 10.5 K/mcL LAB HEMETOLOGY METHOD 06/08/2024 4:54 PM [facility] RBC 3.94(L) 4.20 - 5.40 M/mcL LAB HEMETOLOGY METHOD 06/08/2024 4:54 PM [facility] Hemoglobin 9.3(L) 12.5 - 16.0 g/dL LAB HEMETOLOGY METHOD 06/08/2024 4:54 PM [facility] Hematocrit 28.3(L) 37.0 - 47.0 % LAB HEMETOLOGY METHOD 06/08/2024 4:54 PM [facility] MCV 71.9(L) 78.0 - 100.0 FL LAB HEMETOLOGY METHOD 06/08/2024 4:54 PM [facility] MCH 23.7(L) 25.0 - 33.0 pcg LAB HEMETOLOGY METHOD 06/08/2024 4:54 PM [facility] MCHC 33.0 32.0 - 36.0 g/dL LAB HEMETOLOGY METHOD 06/08/2024 4:54 PM [facility] RDW 15.3 12.1 - 16.2 % LAB HEMETOLOGY METHOD 06/08/2024 4:54 PM [facility] Platelets 395 150 - 450 K/mcL LAB HEMETOLOGY METHOD 06/08/2024 4:54 PM [facility] MPV 8.0 7.4 - 11.4 FL LAB HEMETOLOGY METHOD 06/08/2024 4:54 PM [facility] Neutrophils Relative 42.5(L) 44.0 - 74.0 % LAB HEMETOLOGY METHOD 06/08/2024 4:54 PM [facility] Lymphocytes Relative 47.8 20.0 - 48.0 % LAB HEMETOLOGY METHOD 06/08/2024 4:54 PM [facility] Monocytes Relative 6.5 2.0 - 12.0 % LAB HEMETOLOGY METHOD 06/08/2024 4:54 PM [facility] Eosinophils Relative 2.8 0.0 - 6.0 % LAB HEMETOLOGY METHOD 06/08/2024 4:54 PM [facility] Basophils Relative 0.4 0.0 - 2.0 % LAB HEMETOLOGY METHOD 06/08/2024 4:54 PM [facility] Neutrophils Absolute 2.10 1.80 - 7.80 K/mcL LAB HEMETOLOGY METHOD 06/08/2024 4:54 PM [facility] Lymphocytes Absolute 2.30 1.00 - 3.20 K/mcL LAB HEMETOLOGY METHOD 06/08/2024 4:54 PM [facility] Monocytes Absolute 0.30 0.00 - 0.80 K/mcL LAB HEMETOLOGY METHOD 06/08/2024 4:54 PM [facility] Eosinophils Absolute 0.10 0.00 - 0.50 K/mcL LAB HEMETOLOGY METHOD 06/08/2024 4:54 PM [facility] Basophils Absolute 0.00 0.00 - 0.20 K/mcL LAB HEMETOLOGY METHOD 06/08/2024 4:54 PM [facility] Blood Venous blood specimen / Unknown Venipuncture / Unknown 06/08/2024 1:41 PM EST 06/08/2024 4:39 PM EST Marion West MD LAB BLOOD ORDERA BLES [facility] [address] [place] [address], [place] [phone] * (ABNORMAL) Iron and TIBC (06/08/2024 1:41 PM EST) Iron 19(L) 37 - 170 mcg/dL LAB CHEMISTRY METHOD 06/08/2024 5:16 PM EST [facility] UIBC 369(H) 155 - 355 mcg/dL LAB CHEMISTRY METHOD 06/08/2024 5:16 PM EST [facility] TIBC 388 250 - 450 mcg/dL LAB CHEMISTRY METHOD 06/08/2024 5:16 PM EST [facility] Iron Saturation 5(L) 20 - 45 % LAB CHEMISTRY METHOD 06/08/2024 5:16 PM EST [facility] Blood Venous blood specimen / Unknown Venipuncture / Unknown 06/08/2024 1:41 PM EST 06/08/2024 4:37 PM EST Marion West MD LAB BLOOD ORDERA BLES [facility] [address] [place] [address], [place] [phone] * (ABNORMAL) Vitamin D 25 hydroxy (06/08/2024 1:41 PM EST) Vit D, 25-Hydroxy 20.5(L) 30.0 - 100.0 ng/mL LAB CHEMISTRY METHOD 06/08/2024 5:40 PM EST [facility] Blood Venous blood specimen / Unknown Venipuncture / Unknown 06/08/2024 1:41 PM EST 06/08/2024 4:37 PM EST Narrative [facility] - 06/08/2024 5:40 PM EST Vitamin D ?Reference Range ng/ml Deficiency ? <10 Insufficiency ??10-30 Sufficiency ?30-100 Toxicity ? >100 Marion West MD LAB BLOOD ORDERA BLES Performing Organization Address [facility] Co de Phone Number [facility] [address] [place] [address], * (ABNORMAL) Vitamin B1 (06/08/2024 1:41 PM EST) Vitamin B1 Whole Blood 37(L) 38 - 122 ug/L 06/13/2024 6:21 AM EST [facility] Comment: This test was developed and the performance characteristics determined by [facility]. It has not been cleared or approved by the FDA. The laboratory is regulated under CLIA as qualified to perform high-complexity testing. This test is used for patient testing purposes. It should not be regarded as investigational or for research. Test performed at [facility], [email or web address] [place], [place] ??[address] ? [phone] Vanesa Montiel MD, PhD - Oven Operator Blood Venous blood specimen / Unknown Venipuncture / Unknown 06/08/2024 1:41 PM EST 06/08/2024 4:34 PM EST Marion West MD LAB BLOOD ORDERA BLES Performing Organization Address [facility]/ZIP Co de Phone Number [facility] [address] [place] [address] * Prealbumin (06/08/2024 1:41 PM EST) Prealbumin 20 17 - 34 mg/dL LAB CHEMISTRY METHOD 06/08/2024 5:16 PM EST [facility] Blood Venous blood specimen / Unknown Venipuncture / Unknown 06/08/2024 1:41 PM EST 06/08/2024 4:37 PM EST Marion West MD LAB BLOOD ORDERA BLES [facility] [address] [place] [address], [place] [phone] * Hemoglobin A1c (06/08/2024 1:41 PM EST) Hemoglobin A1C 5.6 <5.7 % LAB CHEMISTRY METHOD 06/09/2024 8:00 AM EST [facility] Mean Bld Glu Estim. 114 mg/dL LAB CHEMISTRY METHOD 06/09/2024 8:00 AM EST [facility] Blood Venous blood specimen / Unknown Venipuncture / Unknown 06/08/2024 1:41 PM EST 06/08/2024 4:39 PM EST Narrative [facility] - 06/09/2024 8:00 AM EST ADA Guidelines: ?? Increased risk Diabetes Mellitus A1C 5.7 - 6.4% and Fasting Blood Glucose 100 - 125 mg/dl Diabetes Mellitus: A1C >6.5% and Fasting Blood Glucose >125 mg/dl Marion West MD LAB BLOOD ORDERA BLES Performing Organization Address City/[facility]/ZIP Co de Phone Number [facility] [address] [place] [address], [place] [phone] * Folate (06/08/2024 1:41 PM EST) Pathologist [facility] Folate 16.3 >=3.0 ng/ml LAB CHEMISTRY METHOD 06/08/2024 5:40 PM EST [facility] Blood Venous blood specimen / Unknown Venipuncture / Unknown 06/08/2024 1:41 PM EST 06/08/2024 4:37 PM EST Marion eWst MD LAB BLOOD ORDERA BLES [facility] [address] [place] [address], [place] [phone] * (ABNORMAL) Ferritin (06/08/2024 1:41 PM EST) Pathologist [facility] Ferritin 7(L) 10 - 120 ng/mL LAB CHEMISTRY METHOD 06/08/2024 5:40 PM EST [facility] Blood Venous blood specimen / Unknown Venipuncture / Unknown 06/08/2024 1:41 PM EST 06/08/2024 4:37 PM EST Marion West MD LAB BLOOD ORDERA BLES [facility] [address] [place] [address], [place] [phone] * Vitamin B12 (06/08/2024 1:41 PM EST) [facility] Vitamin B-12 417 180 - 914 pcg/mL LAB CHEMISTRY METHOD 06/08/2024 5:40 PM EST [facility] Blood Venous blood specimen / Unknown Venipuncture / Unknown 06/08/2024 1:41 PM EST 06/08/2024 4:37 PM EST Marion West MD LAB BLOOD ORDERA BLES [facility] [address] [place] [address], [place] [phone] * Albumin (06/08/2024 1:41 PM EST) Pathologist [facility] Albumin 4.1 3.5 - 5.0 g/dL LAB CHEMISTRY METHOD 06/08/2024 5:16 PM EST [facility] Blood Venous blood specimen / Unknown Venipuncture / Unknown 06/08/2024 1:41 PM EST 06/08/2024 4:37 PM EST Marion West MD LAB BLOOD ORDERA BLES [facility] [address] [place] [address], [place] [phone] * (ABNORMAL) Lipid panel (06/08/2024 1:41 PM EST) Cholesterol 113 0 - 200 mg/dL LAB CHEMISTRY METHOD 06/08/2024 5:16 PM EST [facility] Triglycerides 77 <150 mg/dL LAB CHEMISTRY METHOD 06/08/2024 5:16 PM EST [facility] HDL 34(L) 35 - 80 mg/dL LAB CHEMISTRY METHOD 06/08/2024 5:16 PM EST [facility] LDL Calculated 64 50 - 130 mg/dL LAB CHEMISTRY METHOD 06/08/2024 5:16 PM EST [facility] VLDL Cholesterol José 15.4 mg/dL LAB CHEMISTRY METHOD 06/08/2024 5:16 PM EST [facility] Comment:No established refer ence range. Blood Venous blood specimen / Unknown Venipuncture / Unknown 06/08/2024 1:41 PM EST 06/08/2024 4:37 PM EST Marion West MD LAB BLOOD ORDERA BLES Performing Organization Address City/[facility]/ZIP Co de Phone Number [facility] [address] [place] [address], [place] [phone] from Last 3 Months Care Teams Director Of Estate Relationship Specialty Start Date End Date Physician, Pcp Unknown PCP - General 05/07/24
== END 2024-07-02 13:48 | disposition home or self-care (01) ==
PROVIDERS: PCP Internal Medicine; Visit Provider Surgery
DX: L91.0 Hypertrophic scar (principal)
CPT/HCPCS: 99204

== ENCOUNTER → 2024-07-02 13:02 | Outpatient (BNVA) | payer OTHER, SELFPAY | PROVIDERS: PCP Internal Medicine; Visit Provider Surgery ==